=== PATIENT | female | born 1990 | race Caucasian/White ===

== ENCOUNTER → 2016-09-20 | Outpatient (CLI) | payer BC ==
--- NOTE | 2016-09-20 09:18 | US ---
EXAMINATION TYPE: US OB >= 14 wk fetus DATE OF EXAM: 09/20/2016 8:38 AM COMPARISON: None CLINICAL HISTORY: 25-year-old female O36.63X0 LARGE FOR DATES; G1 TECHNIQUE: Transabdominal (TA) GESTATIONAL AGE / DATING Physician Established: (38 weeks/0 days) EDC: 10/04/2016 Dates by LMP: (38 weeks/0 days) EDC: 10/04/2016 Dates by First Scan: not here Dates by Current Scan: (39 weeks/2 days +/- 2W5D) EDC: 09/25/2016 SURVEY IUP: Single PLACENTA: Fundal; small anechoic area in the central mid placenta measures 1.3 x 1.6 x 0.8 cm. PREVIA: No Previa DAYSI: 16.5 cm Normal CERVICAL LENGTH: Not well seen, estimated at 4.4 cm BIOMETRY PRESENTATION: Vertex LIE: Longitudinal BPD: 9.4 cm 38 weeks / 1 day HC: 34.7 cm 40 weeks / 1 day AC: 36.7 cm 40 weeks / 4 days FL: 7.5 cm 38 weeks / 3 days ESTIMATED WEIGHT IN GRAMS: 3886 grams ESTIMATED WEIGHT IN LBS/OZS: 8 lbs. 9 oz. WEIGHT PERCENTAGE BASED ON ESTABLISHED DATES: 94.3% HC/AC: 0.9 Normal FL/AC: 20.4 Normal HEART RATE: 178 bpm RHYTHM: Normal IMPRESSION: 1. Single live intrauterine with established gestational age of 38 weeks 0 days by LMP. 2. Current ultrasound biometry is concordant but larger (39 weeks 2 days) placing the child at the 94 th percentile for weight. Follow-up as clinically indicated for possible LGA/early macrosomia. 3. A 1.6 cm anechoic area within the central placenta is most suggestive of an incidental venous barrios . This could also be reassessed on any follow-up studies.
== END | disposition home or self-care (01) ==
LOC: RADUSWWP 08:06
PROVIDERS: ATTEND Obstetrics & Gynecology
DX: O36.63X0 Maternal care for excessive fetal growth, third trimester, not applicable or unspecified (principal); Z3A.38 38 weeks gestation of pregnancy
CPT/HCPCS: 76805

== ENCOUNTER 2016-09-22 15:55 | Outpatient (CLI) | payer BC ==
[2016-09-22 16:49] LABS: Basophils % (A) 0 %; CHCM 33.2; Eosinophils # (A) 0.1 k/uL (0-0.7); Eosinophils % (A) 1 %; HCT 37.9 % (34.0-46.0); HDW 2.64; HGB 12.5 gm/dL (11.4-16.0); Luc # (Auto) 0.19; Luc % (Auto) 2; Lymphocytes # (A) 1.8 k/uL (1.0-4.8); Lymphocytes % (A) 15 %; MCH 30.9 pg (25.0-35.0); MCV 93.6 fL (80.0-100.0); Mean Platelet Volume 10.1; Monocytes # (A) 0.5 k/uL (0-1.0); Monocytes % (A) 4 %; Neutrophils # (A) 9.5 k/uL (1.3-7.7); Neutrophils % (A) 78 %; RBC 4.04 m/uL (3.80-5.40); RDW 14.4 % (11.5-15.5); WBC 12.1 k/uL (3.8-10.6); WBC (Perox) 12.25
[2016-09-22 16:54] LABS: ALT 24 U/L (9-52); AST 26 U/L (14-36); LDH 447 U/L (313-618); Non-African American GFR(MDRD) >60 (>60 ml/min/1.73 sqM); Uric Acid 5.5 mg/dL (3.7-7.4)
== END 2016-09-22 17:05 | disposition home or self-care (01) ==
LOC: FBPOP 15:55
PROVIDERS: ATTEND Obstetrics & Gynecology
DX: Z53.9 Procedure and treatment not carried out, unspecified reason (principal)
CPT/HCPCS: 59025; 82565; 83615; 84450; 84460; 84550; 85025; 99215

== ENCOUNTER 2016-09-28 09:43 | Inpatient (IN) | payer BC ==
--- NOTE | 2016-09-27 07:40 | P.HPOB ---
History of Present Illness H&P Date: 09/27/16 Chief Complaint: Primary for macrosomia This patient is a pleasant 25-year-old 1 para 0 female estimated date of confinement 10/04/2016 estimated gestational age 39 weeks who presents to labor and delivery for elective section due to suspected macrosomia. Patient's history is such that she's had serial ultrasounds showing this baby be greater than the 90th percentile. Clinically her exam shows a to be very large as well. Patient states that herself and her were both large babies. I had a long discussion with her and her family about my concerns for the size of the baby and subsequent problems with vaginal delivery. Most recent ultrasound showed the baby to be over 3900 g and clinically much larger. She understands the problem with ultrasounds in the third trimester they are notoriously inaccurate and clinically there is concerns about the size of the her baby. I recommended she proceed with section at this time for delivery and she wishes to proceed. otherwise has been uncomplicated. Review of Systems Constitutional: Denies chills, Denies fever Ears, nose, mouth and throat: Denies headache, Denies sore throat Cardiovascular: Denies chest pain, Denies shortness of breath Respiratory: Denies cough Gastrointestinal: Reports heartburn Genitourinary: Reports Menstruation: Reports amenorrhea Musculoskeletal: Denies myalgias Integumentary: Denies pruritus, Denies rash Neurological: Denies numbness, Denies weakness Past Medical History Additional Past Medical History / Comment(s): Patient has a history of GERD and hiatal hernia. History of Any Multi-Drug Resistant Organisms: None Reported Additional Past Surgical History / Comment(s): Patient's had an upper endoscopy. Past Psychological History: No Psychological Hx Reported Smoking Status: Never smoker Past Alcohol Use History: None Reported Past Drug Use History: None Reported Medications and Allergies Home Medications Medication Instructions Recorded Confirmed Type Pediatric Multivit Comb #25/FA 1 tab PO DAILY 09/22/16 09/22/16 History [Flintstones Multivit Chew Tab] Allergies Allergy/AdvReac Type Severity Reaction Status Date / Time No Known Allergies Allergy Verified 09/22/16 16:08 Exam - OBG Physical Exam Abdomen: bowel sounds normal, no diffuse tenderness, no bruit present, no guarding noted, no hepatomegaly, no splenomegaly, no mass Vulva: both: normal Cervix: no lesion (Cervix in the office is closed and thick.), no discharge Uterus: enlarged (Fundal height in the office was 47 cm.) Results blood work shows she is O positive, rubella low positive, hepatitis B negative, RPR nonreactive, HIV nonreactive, Glucola was abnormal with a normal three-hour GTT, ultrasounds as above. Patient's estimated weight clinically is 9 to 9-1/2 pounds. Assessment and Plan (1) macrosomia during in third trimester Narrative/Plan: This is a pleasant 25-year-old 1 para 0 female 39 weeks gestation with suspected excessive macrosomia. Plan at this point is to proceed with primary section for delivery. Patient and I had multiple discussions about the surgery and risks including risks of infection, bleeding, risk of injury to bowel, bladder, vessels, and other organs. Patient also understands risk of DVT and pulmonary embolism. Patient I also discussed the relative inaccuracy of ultrasounds in the third trimester fact that this baby could be significantly larger or smaller than the stated ultrasound. All the patient's questions are answered and a written consent is obtained. Status: Acute (2) Delivery by elective section Status: Acute
[2016-09-28] MEDS ORDERED: CITRIC ACID-SODIUM CITRATE 15 ML CUP PO ONE (10:39)
[2016-09-28] MEDS ORDERED: LACTATED RINGERS 1,000 ML IV SCH (10:39)
[2016-09-28] MEDS ORDERED: LACTATED RINGERS 1,000 ML IV ONE (10:39)
[2016-09-28 10:47] VITALS: BMI 34.7
[2016-09-28 10:57] LABS: Basophils % (A) 0 %; CH 30.6; CHCM 32.9; Eosinophils # (A) 0.1 k/uL (0-0.7); Eosinophils % (A) 1 %; HCT 41.8 % (34.0-46.0); HDW 2.54; HGB 13.7 gm/dL (11.4-16.0); Luc # (Auto) 0.23; Luc % (Auto) 2; Lymphocytes # (A) 1.7 k/uL (1.0-4.8); Lymphocytes % (A) 14 %; MCH 30.6 pg (25.0-35.0); MCHC 32.7 g/dL (31.0-37.0); MCV 93.6 fL (80.0-100.0); Mean Platelet Volume 8.6; Monocytes # (A) 0.4 k/uL (0-1.0); Monocytes % (A) 3 %; Neutrophils # (A) 9.3 k/uL (1.3-7.7); Neutrophils % (A) 79 %; RBC 4.47 m/uL (3.80-5.40); RDW 14.5 % (11.5-15.5); WBC 11.8 k/uL (3.8-10.6); WBC (Perox) 12.59
[2016-09-28] MEDS ORDERED: ceFAZolin 2 GM in SODIUM CHLORIDE 0.9% 100 ML IVPB ONE (12:00)
[2016-09-28] MEDS ORDERED: KETOROLAC 30 MG/ML 1 ML VIAL ONE (12:18)
[2016-09-28] MEDS ORDERED: PHENYLEPHRINE-0.9% NACL SYG 1 MG/10 ML SYRINGE ONE (12:18)
[2016-09-28] MEDS ORDERED: ONDANSETRON 4 MG/2 ML VIAL ONE (12:18)
[2016-09-28] MEDS ORDERED: OXYTOCIN 10 UNIT/ML 1 ML VIAL IM ONE (12:18)
[2016-09-28] MEDS ORDERED: MORPHINE SULFATE (PF) 0.3 MG/0.3 ML SYR ONE (12:18)
[2016-09-28] MEDS ORDERED: NALBUPHINE 10 MG/ML AMPUL ONE (12:18)
[2016-09-28] MEDS ORDERED: MORPHINE SULFATE 4 MG/ML SYRINGE IVP PRN (12:40)
[2016-09-28] MEDS ORDERED: ONDANSETRON 4 MG/2 ML VIAL IVP PRN ×2 (12:40→12:56)
[2016-09-28] MEDS ORDERED: diphenhydrAMINE 50 MG/ML 1 ML VIAL IVP PRN ×2 (12:40→12:56)
[2016-09-28] MEDS ORDERED: NALOXONE 0.4 MG/ML 1 ML VIAL IV PRN ×2 (12:40→12:56)
[2016-09-28] MEDS ORDERED: ZOLPIDEM 5 MG TAB PO PRN (12:56)
[2016-09-28] MEDS ORDERED: SIMETHICONE 80 MG CHEWABLE PO PRN (12:56)
[2016-09-28] MEDS ORDERED: Acetaminophen-Codeine 300-30mg TAB PO PRN ×2 (12:56)
[2016-09-28] MEDS ORDERED: MEASLES-MUMPS-RUBELLA VACC/PF 12,500 UNIT/0.5 ML VIAL SQ ONE (12:56)
[2016-09-28] MEDS ORDERED: diphenhydrAMINE 25 MG CAP PO PRN (12:56)
[2016-09-28] MEDS ORDERED: METOCLOPRAMIDE 5 MG/ML 2 ML VIAL IVP PRN (12:56)
[2016-09-28] MEDS ORDERED: ACETAMINOPHEN TAB 325 MG TAB PO PRN (12:56)
[2016-09-28] MEDS ORDERED: DIPH,PERTUS(ACELL)TETVAC-LF 0.5 ML VIAL IM ONE (12:58)
[2016-09-28] MEDS ORDERED: OXYTOCIN 30 UNITS/500 ML NS 30 UNIT in SALINE 1 500ML.BAG IV SCH (13:00)
--- NOTE | 2016-09-28 13:03 | P.OP ---
Date of Procedure: 09/28/16 Preoperative Diagnosis: macrosomia Postoperative Diagnosis: Same Procedure(s) Performed: Primary low transverse section Anesthesia: spinal Surgeon: Beny Ybarra Cashier [employer] Gasoline #1: Moni Khan Estimated Blood Loss (ml): 800 Pathology: other (Placenta) Condition: stable Disposition: floor Indications for Procedure: Please see dictated H&P for intimate details of this patient's admission. Brief summary this is a pleasant 25-year-old 1 para 0 female 39 weeks gestation who is admitted to labor and delivery for elective section due to suspected macrosomia. Patient does understand the surgery and risks including risks of infection, bleeding, possible injury to bowel, bladder , vessels, and other organs. Patient also understands the risk of DVT and pulmonary embolism. All the patient's questions are answered and a written consent is obtained. Operative Findings: This was a vigorous viable male Apgars were 8 and 9 delivery time was 1231 hrs. Infant's weight was 4800 g which is 10 lbs. 9 oz. Description of Procedure: This patient has a Lloyd catheter placed to straight drain. She is subsequently taken to the operating room where she sat up and spinal anesthetic is administered without incident. With an adequate level of anesthesia she has an abdominal prep and drape. A Pfannenstiel skin incision is then made. A second scalpel is then taken to the fascia and the fascia scored with the scalpel. Fascial incision extended bilaterally using the Aguirre scissors. Fascia is then dissected sharply off the rectus muscles. Rectus muscles are the peritoneum identified and entered sharply. Bladder peritoneum was then incised and the bladder pushed out of the lower uterine segment. Bladder blade is placed. Scalpels taken low transverse uterine incision is then made. Using a hemostat I gently into the uterine cavity and there is loss of clear fluid. This incision is extended bluntly. 's head is then guided through the incision with fundal pressure with delivery of the infant's head. Mouth and nares are bulb suctioned. There is no evidence of a nuchal cord. We then have delivery anterior posterior shoulder and rest this 's body. This is a vigorous viable male Apgars are 8 and 9 delivery time was 1231 hrs. Infant has spontaneous respiration and good cry and grossly appears normal. After delivery of the infant the umbilical cord is doubly clamped and cut and appears to be trivascular. Placenta is then manually extracted intact. The uterus is then externalized and the uterine incision demarcated with Coyle clamps. The uterine incision is then closed using 0 Vicryl running locked fashion in 2 layers excellent hemostasis is noted. The bladder peritoneum was then reapproximated using a 3-0 Vicryl. Excess fluid is removed from the abdomen and pelvis. The uterus tubes and ovaries appear normal for term gestation. Uterus is placed back into the abdomen. The parietal peritoneum is closed using a 0 Vicryl running fashion. Rectus muscles are reapproximated in 0 Vicryl interrupted fashion. Fascia is then closed using 0 PDS in a running fashion. Fascial incision is intact and hemostatic. Subcutaneous tissues and reapproximated using a 3-0 Vicryl. Skin is and closed using vy. All counts are correct 3. There are no complications. Infant and mother are taken to the birthing suite in satisfactory condition.
[2016-09-28] MEDS: LACTATED RINGERS 1,000 ML IV SCH ×2 (13:25→23:05)
[2016-09-28] MEDS: KETOROLAC 30 MG/ML 1 ML VIAL IVP PRN (19:09)
[2016-09-28] MEDS: SENNOSIDES-DOCUSATE SODIUM 1 EACH TAB PO SCH (21:00)
[2016-09-29] MEDS: KETOROLAC 30 MG/ML 1 ML VIAL IVP PRN (04:56)
[2016-09-29] MEDS: LACTATED RINGERS 1,000 ML IV SCH ×2 (05:01→14:42)
--- NOTE | 2016-09-29 06:27 | P.PNOBGPC ---
Subjective - Subjective Patient reports: Reports appetite normal, Reports voiding normally, Reports pain well controlled, Reports ambulating normally : doing well Objective - Vital Signs Latest vital signs: Vital Signs Temp Pulse Resp BP Pulse Ox 09/29/16 04:00 97.4 F L 66 16 127/80 09/29/16 00:00 97.9 F 64 16 126/74 09/28/16 20:00 97.9 F 72 17 127/76 09/28/16 14:56 96.7 F L 58 L 18 134/97 98 09/28/16 14:26 76 18 118/79 97 09/28/16 13:56 61 18 122/71 97 09/28/16 13:41 74 18 129/67 98 09/28/16 13:26 96.0 F L 69 16 128/68 98 09/28/16 13:11 95.6 F L 71 17 107/65 98 09/28/16 12:56 95.9 F L 81 18 113/59 97 09/28/16 10:40 97.4 F L 97 18 132/90 99 Intake and Output 09/28/16 09/28/16 09/29/16 14:59 22:59 06:59 Intake Total 3200 625 Output Total 800 200 Balance -800 3000 625 Intake: IV 3000 625 Lactated Ringers 1,000 ml 3000 625 @ 125 mls/hr IV .Q8H [facility] Rx#:[id number] Oral 200 Output: Urine 200 Uretheral (Lloyd) 200 Estimated Blood Loss 800 Other: Voiding Method Indwelling Catheter Weight 97.522 kg Patient Weight 09/29/16 06:59 Weight 97.522 kg - Exam Lungs: bilateral: normal Chest: Normal S1, Normal S2 Extremities: Present: normal Abdomen: Present: normal appearance, soft. Absent: distention, tenderness Incision: Present: normal, dry, intact Uterus: Present: normal, firm - Labs Labs: Abnormal Lab Results - Last 24 Hours (Table) 09/28/16 Range/Units 10:47 WBC 11.8 H (3.8-10.6) k/uL Neutrophils # 9.3 H (1.3-7.7) k/uL Assessment and Plan (1) macrosomia during in third trimester Narrative/Plan: Postoperative day #1. Patient is resting without complaints. Vital signs are stable and she is afebrile. Uterus is firm nontender she's having normal lochia. Incision is intact and dry. CBC is pending. My impression is this is a normal course. Plan is to advance to regular diet, allow the patient to shower, encourage ambulation, check a CBC, and continue routine postoperative care. Current Visit: Yes Status: Acute Code(s): O36.63X0 - MATERNAL CARE FOR EXCESS GROWTH, THIRD TRIMESTER, UNSP SNOMED Code(s): 918461061 (2) Delivery by elective section Current Visit: Yes Status: Acute Code(s): O82 - ENCOUNTER FOR DELIVERY WITHOUT INDICATION SNOMED Code(s): 737872061
--- NOTE | 2016-09-29 07:25 | P.PN ---
Progress Note - Text Date: 09/29/2016 Time: 707 The patient is status post section Vital signs stable VAS: 0-10 Patient has no complaints of pain. The patient incurred some minimal itching yesterday, this itching is now subsiding. Pain meds to be managed by service.
[2016-09-29] MEDS: SENNOSIDES-DOCUSATE SODIUM 1 EACH TAB PO SCH ×2 (07:44→23:09)
[2016-09-29 08:08] LABS: Basophils % (A) 0 %; CH 30.5; Eosinophils # (A) 0.1 k/uL (0-0.7); Eosinophils % (A) 1 %; HCT 35.6 % (34.0-46.0); HDW 2.52; HGB 11.6 gm/dL (11.4-16.0); Luc # (Auto) 0.14; Luc % (Auto) 1; Lymphocytes # (A) 1.3 k/uL (1.0-4.8); Lymphocytes % (A) 11 %; MCH 30.3 pg (25.0-35.0); MCHC 32.6 g/dL (31.0-37.0); Mean Platelet Volume 9.1; Monocytes # (A) 0.4 k/uL (0-1.0); Monocytes % (A) 4 %; Neutrophils # (A) 9.8 k/uL (1.3-7.7); Neutrophils % (A) 84 %; RBC 3.83 m/uL (3.80-5.40); RDW 14.5 % (11.5-15.5); WBC 11.7 k/uL (3.8-10.6); WBC (Perox) 12.68
[2016-09-29] MEDS: IBUPROFEN 600 MG TAB PO PRN ×2 (16:00→23:08)
[2016-09-30] MEDS: IBUPROFEN 600 MG TAB PO PRN ×2 (05:36→11:59)
--- NOTE | 2016-09-30 06:34 | P.PNOBGPC ---
Subjective - Subjective Patient reports: Reports appetite normal, Reports voiding normally, Reports pain well controlled, Reports ambulating normally : doing well Objective - Vital Signs Latest vital signs: Vital Signs Temp Pulse Resp BP Pulse Ox 09/30/16 04:00 98.0 F 68 19 131/76 98 09/29/16 20:00 97.8 F 74 16 144/81 97 09/29/16 16:00 97.9 F 77 16 130/78 99 09/29/16 12:30 98.0 F 78 18 137/73 97 09/29/16 07:49 97.5 F L 72 18 127/80 97 Intake and Output 09/29/16 09/29/16 09/30/16 14:59 22:59 06:59 Intake Total 600 Balance 600 Intake: Oral 600 Other: # Voids 1 2 # Bowel Movements 0 - Exam Lungs: bilateral: normal Chest: Normal S1, Normal S2 Extremities: Present: normal Abdomen: Present: normal appearance, soft. Absent: distention, tenderness Incision: Present: normal, dry, intact Uterus: Present: normal, firm - Labs Labs: Abnormal Lab Results - Last 24 Hours (Table) 09/29/16 Range/Units 07:44 WBC 11.7 H (3.8-10.6) k/uL Neutrophils # 9.8 H (1.3-7.7) k/uL Assessment and Plan (1) macrosomia during in third trimester Narrative/Plan: Post operative day #2. Patient is resting without complaints and wishes to go home. Vital signs are stable and she is afebrile. Uterus is firm nontender and her incision is intact and dry. My impression is that this is a normal postoperative course. Plan is to continue routine postoperative care and discharge home later today. Current Visit: Yes Status: Acute Code(s): O36.63X0 - MATERNAL CARE FOR EXCESS GROWTH, THIRD TRIMESTER, UNSP SNOMED Code(s): 794280404 (2) Delivery by elective section Current Visit: Yes Status: Acute Code(s): O82 - ENCOUNTER FOR DELIVERY WITHOUT INDICATION SNOMED Code(s): 050505047
--- NOTE | 2016-09-30 06:37 | P.DS ---
Providers Date of admission: 09/28/16 10:17 Expected date of discharge: 09/30/16 Attending physician: Beny Ybarra Primary care physician: Nate Valentine - Discharge Diagnosis(es) (1) macrosomia during in third trimester Current Visit: Yes Status: Acute (2) Delivery by elective section Current Visit: Yes Status: Acute Hospital Course: Please see dictated H&P for intimate details of this patient's admission. Brief summary this is a pleasant 25-year-old 1 para 0 female 39-0/7 weeks gestation admitted to labor and delivery for primary section due to suspected macrosomia. Patient undergoes above-named surgery for viable male infant. Please see dictated delivery note. day #2 patient's felt be stable for discharge home follow up with me in 1 week. Procedures: Primary low transverse section Patient Condition at Discharge: Good Plan - Discharge Summary New Discharge Prescriptions: Acetaminophen-Codeine 300-30mg [Tylenol w/codeine #3] 1 - 2 each PO Q4HR PRN # 40 tab PRN Reason: Mild Pain Ibuprofen [Motrin] 600 mg PO Q6HR PRN #40 tab PRN Reason: Mild Pain Or Fever >= 100.5 Discharge Medication List Pediatric Multivit Comb #25/FA [Flintstones Multivit Chew Tab] 1 tab PO DAILY [History] Acetaminophen-Codeine 300-30mg [Tylenol w/codeine #3] 1 - 2 each PO Q4HR PRN # 40 tab 09/30/16 [Rx] Ibuprofen [Motrin] 600 mg PO Q6HR PRN #40 tab 09/30/16 [Rx] Follow up Appointment(s)/Referral(s): Beny Ybarra MD [STAFF PHYSICIAN] - 10/06/16 1:30 pm (Patient also has a check on November 11 at 8:30 AM.) Patient Instructions/Handouts: (DC) Activity/Diet/Wound Care/Special Instructions: No intercourse or anything per vagina for 6 weeks. Please call if any fever, chills, excessive vaginal bleeding, and/or abdominal pain. Discharge Disposition: HOME SELF-CARE
[2016-09-30] MEDS: SENNOSIDES-DOCUSATE SODIUM 1 EACH TAB PO SCH (08:05)
[2016-09-30 08:55] VITALS: BP 137/99; PULSE 78; RESP 18; TEMP 98.3
== END 2016-09-30 12:45 | disposition home or self-care (01) | DRG 766 ==
LOC: 4FBP 10:17
PROVIDERS: ADMIT Obstetrics & Gynecology; ATTEND Obstetrics & Gynecology
PROC: 3E0S3NZ Introduction of Analgesics, Hypnotics, Sedatives into Epidural Space, Percutaneous Approach (ICD-10-PCS; 2016-09-28)
PROC: 3E0234Z Introduction of Serum, Toxoid and Vaccine into Muscle, Percutaneous Approach (ICD-10-PCS; 2016-09-28)
PROC: 3E0134Z Introduction of Serum, Toxoid and Vaccine into Subcutaneous Tissue, Percutaneous Approach (ICD-10-PCS; 2016-09-28)
PROC: 10D00Z1 Extraction of Products of Conception, Low, Open Approach (ICD-10-PCS; principal; 2016-09-28 12:30)
DX: O36.63X0 Maternal care for excessive fetal growth, third trimester, not applicable or unspecified (principal); K21.9 Gastro-esophageal reflux disease without esophagitis; K44.9 Diaphragmatic hernia without obstruction or gangrene; O99.62 Diseases of the digestive system complicating childbirth; Z3A.39 39 weeks gestation of pregnancy; Z37.0 Single live birth; Z23 Encounter for immunization
CPT/HCPCS: 85025; 86850; 86900; 86901; 88307; 90707; 90715

== ENCOUNTER 2017-11-16 06:32 | Emergency (ER) | payer BC ==
[2017-11-16 06:39] VITALS: RESP 18
[2017-11-16] MEDS ORDERED: SODIUM CHLORIDE 0.9% 1,000 ML IV STA (07:16)
[2017-11-16] MEDS ORDERED: diphenhydrAMINE 50 MG/ML 1 ML VIAL IVP STA (07:18)
[2017-11-16] MEDS ORDERED: FAMOTIDINE 20 MG/2 ML VIAL IV STA (07:18)
[2017-11-16] MEDS ORDERED: PYRIDOXINE 50 MG TAB PO STA (07:18)
--- NOTE | 2017-11-16 07:22 | ED ---
General Adult HPI - General Chief complaint: GI Bleed Stated complaint: Vomit blood-15 wks pg Time Seen by Provider: 11/16/17 07:12 Source: patient Mode of arrival: ambulatory Limitations: no limitations - History of Present Illness Initial comments: Patient complains of nausea and vomiting. She is currently 15 weeks . She states that she has bad morning sickness. Patient states that she saw blood in her vomit this morning. She is not currently vomiting. She has no belly or back or chest pain. She has no vaginal bleeding or discharge. She has no pelvic pain. She denies injuries. She has no weakness. She has no trouble walking. She has no trouble tolerating oral intake. She has no neck pain or stiffness. Nothing makes her symptoms better or worse. - Related Data Home Medications Medication Instructions Recorded Confirmed Pedi Multivit No.25/Folic Acid 1 tab PO DAILY 09/22/16 09/22/16 [Flintstones Multivit Chew Tab] Previous Rx's Medication Instructions Recorded Acetaminophen-Codeine 300-30mg 1 - 2 each PO Q4HR PRN #40 tab 09/30/16 [Tylenol w/codeine #3] Ibuprofen [Motrin] 600 mg PO Q6HR PRN #40 tab 09/30/16 Doxylamine Succinate [Unisom] 25 mg PO HS PRN #10 tab 11/16/17 Allergies Allergy/AdvReac Type Severity Reaction Status Date / Time No Known Allergies Allergy Verified 11/16/17 06:39 Review of Systems ROS Statement: Those systems with pertinent positive or pertinent negative responses have been documented in the HPI. ROS Other: All systems not noted in ROS Statement are negative. Past Medical History Past Medical History: No Reported History Additional Past Medical History / Comment(s): Patient has a history of GERD and hiatal hernia. History of Any Multi-Drug Resistant Organisms: None Reported Past Surgical History: No Surgical Hx Reported, Section Additional Past Surgical History / Comment(s): Patient's had an upper endoscopy. X1. Past Anesthesia/Blood Transfusion Reactions: No Reported Reaction Past Psychological History: No Psychological Hx Reported Smoking Status: Never smoker Past Alcohol Use History: None Reported Past Drug Use History: None Reported - Past Family History Father Family Medical History: No Reported History General Exam Limitations: no limitations General appearance: alert, in no apparent distress Head exam: Present: atraumatic, normocephalic, normal inspection Eye exam: Present: normal appearance, PERRL, EOMI. Absent: scleral icterus, conjunctival injection, periorbital swelling ENT exam: Present: normal exam, mucous membranes moist Neck exam: Present: normal inspection. Absent: tenderness, meningismus, lymphadenopathy Respiratory exam: Present: normal lung sounds bilaterally. Absent: respiratory distress, wheezes, rales, rhonchi, stridor Cardiovascular Exam: Present: regular rate, normal rhythm, normal heart sounds. Absent: systolic murmur, diastolic murmur, rubs, gallop, clicks GI/Abdominal exam: Present: soft, normal bowel sounds. Absent: distended, tenderness, guarding, rebound, rigid Extremities exam: Present: normal inspection, full ROM, normal capillary refill. Absent: tenderness, pedal edema, joint swelling, calf tenderness Back exam: Present: normal inspection Neurological exam: Present: alert, oriented X3, CN II-XII intact Psychiatric exam: Present: normal affect, normal mood Skin exam: Present: warm, dry, intact, normal color. Absent: rash Course Vital Signs 11/16/17 06:34 Temperature 99.7 F H Pulse Rate 90 Respiratory 18 Rate Blood Pressure 134/70 O2 Sat by Pulse 100 Oximetry Medical Decision Making - Medical Decision Making Patient presents with nausea and vomiting related to . She complained of blood in the vomit. She has not had a single episode of emesis while in the emergency department. Laboratory studies all normal. Her examination is unremarkable. Her vital signs are normal. There is no evidence of any acute emergency condition. She will follow-up with [facility] as an outpatient. - Lab Data Result diagrams: 11/16/17 07:40 11/16/17 07:40 Lab Results 11/16/17 11/16/17 11/16/17 Range/Units 07:40 07:40 07:40 WBC 10.9 H (3.8-10.6) k/uL RBC 4.26 (3.80-5.40) m/uL Hgb 12.7 (11.4-16.0) gm/dL Hct 38.0 (34.0-46.0) % MCV 89.3 (80.0-100.0) fL MCH 29.9 (25.0-35.0) pg MCHC 33.5 (31.0-37.0) g/dL RDW 13.5 (11.5-15.5) % Plt Count 268 (150-450) k/uL Neutrophils % 76 % Lymphocytes % 18 % Monocytes % 3 % Eosinophils % 2 % Basophils % 0 % Neutrophils # 8.3 H (1.3-7.7) k/uL Lymphocytes # 2.0 (1.0-4.8) k/uL Monocytes # 0.3 (0-1.0) k/uL Eosinophils # 0.2 (0-0.7) k/uL Basophils # 0.0 (0-0.2) k/uL PT 9.5 (9.0-12.0) sec INR 1.0 (<1.2) APTT 23.9 (22.0-30.0) sec Sodium 141 (137-145) mmol/L Potassium 3.9 (3.5-5.1) mmol/L Chloride 107 (98-107) mmol/L Carbon Dioxide 21 L (22-30) mmol/L Anion Gap 13 mmol/L BUN 8 (7-17) mg/dL Creatinine 0.42 L (0.52-1.04) mg/dL Est GFR (CKD-EPI)AfAm >90 (>60 ml/min/1.73 sqM) Est GFR (CKD-EPI)NonAf >90 (>60 ml/min/1.73 sqM) Glucose 92 (74-99) mg/dL Calcium 9.4 (8.4-10.2) mg/dL Magnesium 1.7 (1.6-2.3) mg/dL Total Bilirubin 0.2 (0.2-1.3) mg/dL AST 13 L (14-36) U/L ALT 27 (9-52) U/L Alkaline Phosphatase 56 (38-126) U/L Total Protein 6.2 L (6.3-8.2) g/dL Albumin 3.6 (3.5-5.0) g/dL Disposition Clinical Impression: Nausea and vomiting Disposition: HOME SELF-CARE Condition: Good Instructions: Hyperemesis Gravidarum (ED) Prescriptions: Doxylamine Succinate [Unisom] 25 mg PO HS PRN #10 tab PRN Reason: Vomiting Is patient prescribed a controlled substance at discharge?: No Referrals: Beny Ybarra MD [Primary Care Provider] - 1-2 days
[2017-11-16 07:59] LABS: Basophils % (A) 0 %; Eosinophils # (A) 0.2 k/uL (0-0.7); Eosinophils % (A) 2 %; HGB 12.7 gm/dL (11.4-16.0); Lymphocytes % (A) 18 %; MCH 29.9 pg (25.0-35.0); MCHC 33.5 g/dL (31.0-37.0); MCV 89.3 fL (80.0-100.0); Mean Platelet Volume 7.3; Monocytes # (A) 0.3 k/uL (0-1.0); Monocytes % (A) 3 %; Neutrophils # (A) 8.3 k/uL (1.3-7.7); Neutrophils % (A) 76 %; Platelet Count 268 k/uL (150-450); RBC 4.26 m/uL (3.80-5.40); RDW 13.5 % (11.5-15.5); WBC 10.9 k/uL (3.8-10.6)
[2017-11-16 08:12] LABS: Partial Thromboplastin Time 23.9 sec (22.0-30.0); Prothrombin Time 9.5 sec (9.0-12.0)
[2017-11-16 08:25] LABS: ALT 27 U/L (9-52); AST 13 U/L (14-36); Albumin 3.6 g/dL (3.5-5.0); Alkaline Phosphatase 56 U/L (38-126); Anion Gap 13 mmol/L; Blood Urea Nitrogen 8 mg/dL (7-17); Calcium 9.4 mg/dL (8.4-10.2); Carbon Dioxide 21 mmol/L (22-30); Chloride 107 mmol/L (98-107); Glucose 92 mg/dL (74-99); Magnesium 1.7 mg/dL (1.6-2.3); Potassium 3.9 mmol/L (3.5-5.1); Sodium 141 mmol/L (137-145); Total Bilirubin 0.2 mg/dL (0.2-1.3); Total Protein 6.2 g/dL (6.3-8.2)
[2017-11-16 08:41] VITALS: BP 127/58; PULSE 78; TEMP 98.9
== END 2017-11-16 08:45 | disposition home or self-care (01) ==
LOC: EC 06:32
DX: O21.9 Vomiting of pregnancy, unspecified (principal); Z3A.15 15 weeks gestation of pregnancy
CPT/HCPCS: 36415; 80053; 83735; 85025; 85610; 85730; 99284; 96374; 96375; 96361; J1200

== ENCOUNTER → 2018-02-03 | Outpatient (CLI) | payer BC ==
[2018-02-03 10:04] LABS: HCT 41.2 % (34.0-46.0); HGB 13.2 gm/dL (11.4-16.0); MCH 30.7 pg (25.0-35.0); MCV 95.7 fL (80.0-100.0); Mean Platelet Volume 7.6; Platelet Count 251 k/uL (150-450); RDW 13.8 % (11.5-15.5); WBC 12.4 k/uL (3.8-10.6)
== END | disposition home or self-care (01) ==
LOC: LABWHC1 08:32
PROVIDERS: ATTEND Obstetrics & Gynecology
DX: Z34.82 Encounter for supervision of other normal pregnancy, second trimester (principal); Z3A.00 Weeks of gestation of pregnancy not specified
CPT/HCPCS: 36415; 82950; 85027

== ENCOUNTER 2018-03-20 10:40 | Outpatient (CLI) | payer BC ==
[2018-03-20 11:18] LABS: Glucose,Whole Blood 105 mg/dL (75-99)
[2018-03-20 12:05] LABS: Appearance,Urine Cloudy (Clear); Bacteria,Urine Rare /hpf; Bilirubin,Urine Negative (Negative); Blood,Urine Negative (Negative); Color,Urine Yellow; Glucose,Urine (UA) 2+ (Negative); Leukocyte Esterase,Urine Negative (Negative); Mucus,Urine Rare /hpf; Nitrite,Urine Negative (Negative); Protein,Urine Trace (Negative); RBC,Urine <1 /hpf (0-5); Specific Gravity,Urine 1.011 (1.001-1.035); Squamous Epithelial Cell,Urine 2 /hpf (0-4); Urobilinogen,Urine <2.0 mg/dL (<2.0); WBC,Urine 6 /hpf (0-5)
[2018-03-20 12:06] LABS: Ketones,Urine 2+ (Negative)
[2018-03-20] MEDS: LACTATED RINGERS 1,000 ML IV SCH ×2 (12:30→12:45)
[2018-03-20 12:38] LABS: Basophils % (A) 0 %; Eosinophils # (A) 0.1 k/uL (0-0.7); Eosinophils % (A) 1 %; HCT 40.6 % (34.0-46.0); HGB 12.9 gm/dL (11.4-16.0); Lymphocytes # (A) 0.9 k/uL (1.0-4.8); Lymphocytes % (A) 8 %; MCH 29.7 pg (25.0-35.0); MCHC 31.7 g/dL (31.0-37.0); MCV 93.6 fL (80.0-100.0); Monocytes # (A) 0.6 k/uL (0-1.0); Monocytes % (A) 5 %; Neutrophils # (A) 9.8 k/uL (1.3-7.7); Neutrophils % (A) 85 %; Platelet Count 207 k/uL (150-450); RBC 4.34 m/uL (3.80-5.40); RDW 14.1 % (11.5-15.5); WBC 11.5 k/uL (3.8-10.6)
[2018-03-20 13:39] VITALS: BP 130/76; RESP 17; TEMP 98.8
[2018-03-20 13:54] VITALS: PULSE 99
--- NOTE | 2018-03-28 08:12 | P.MSEPDOC ---
Presenting Problems - Arrival Data Date of Arrival on Unit: 03/20/18 Time of Arrival on Unit: 10:29 Mode of Transport: Ambulatory - Complaint OB-Reason for Admission/Chief Complaint: Decreased Movement Comment: pt here with c/o decreased movement all morning, last felt move. around 0830 this morning, pt denies contractions/cramping/vb/lof, pt reports lower back. pain and occasional lower abd pain that has been occuring since yesterday morning, hx of. gdm, will check blood sugar Medical History - Information : 2 Para: 1 Term: 1 : 0 Abortions: Spontaneous or Elective: 0 Number of Living Children: 1 - Gestational Age Gestational Age by EMILY (wks/days): 32 Weeks and 3 Days - History Complications: GDM Comment: fasting blood sugar today was 116, re checked accucheck in triage for a result of 105 Review of Systems - Review of Systems Constitutional: No problems Breast: No problems ENT: Sore throat Cardiovascular: No problems Respiratory: No problems Gastrointestinal: No problems Genitourinary: No problems Musculoskeletal: No problems Neurological: No problems Skin: No problems Vital Signs - Temperature Temperature: 98.8 F Temperature Source: Oral - Pulse Right Brachial Pulse Rate: 99 Pulse Assessment Method: Automatic Cuff - Respirations Respiratory Rate: 17 Oxygen Delivery Method: Room Air O2 Sat by Pulse Oximetry: 98 - Blood Pressure Right Arm Blood Pressure: 130/76 Blood Pressure Mean: 94 Blood Pressure Source: Automatic Cuff Medical Screen Scoring (Pre) - Cervical Exam Dilation: 0 cm = 0 Membranes: Intact - Uterine Contractions Frequency: N/A Duration: N/A Intensity: N/A - Maternal Vital Signs Maternal Temperature: N/A Maternal Blood Pressure: N/A Signs of Preeclampsia: N/A Maternal Respirations: N/A - Pain Assessment Pain Location and Character: Lower, Back Pain Scale Used: Numeric (1 - 10) Pain Intensity: 4 Pain Management Goal: 3 Pain Description: *Acute, Aching Pain Radiation Location: none Pain Frequency: Frequent Pain Duration: 1 Pain Duration Units: Days Pain Behavior: None Exhibited Pain Aggravating Factors: None - Maternal Trauma Maternal Trauma: N/A - Assessment Baseline FHR: 140 Heart Rate - NICHD Category: Category I (Normal) = 0 NST: Reactive Position: N/A Station: N/A - Total Score Total Score (Pre): 0 - Level of Risk Level of Risk: Low (0-5) Physician Notification (Pre) - Physician Notified Physician Notified Date: 03/20/18 Physician Notified Time: 12:15 Physician/Practitioner Notifed:: Dr Funez Spoke With: Dr Funez New Order Received: Yes (labs and iv start) Medical Screen Scoring (Post) - Uterine Contractions Frequency: N/A Duration: N/A Intensity: N/A - Maternal Vital Signs Maternal Temperature: N/A Maternal Blood Pressure: N/A Signs of Preeclampsia: N/A Maternal Respirations: N/A - Assessment Heart Rate: 140 Heart Rate - NICHD Category: Category I (Normal) = 0 NST: Reactive Position: N/A Station: N/A - Total Score Total Score (Post): 0 - Post Treatment Level of Risk Post Treatment Level of Risk: Low (0-5) Physician Notification (Post) - Physician Notified Physician Notified Date: 03/20/18 Physician Notified Time: 13:39 Physician/Practitioner Notified:: Dr Funez Spoke With: Dr Funez New Order Received: Yes (dc home) - Notification Comment Comment: reivewed blood work results with dr fnuez, pt ok to dc home at this time and keep appt for tuesday at office Disposition - Disposition OB Disposition: Triage, Discharge to home, Written follow up instructions reviewed Discharge Date: 03/20/18 Discharge Time: 13:53 I agree with the RN Medical Screening Exam: Yes Risk & Benefit of care provided described in d/c instruction: Yes Diagnosis: DECREASED MOVEMENTS, THIRD TRIMESTER, FETUS 1
== END 2018-03-20 13:59 | disposition home or self-care (01) ==
LOC: FBPOP 10:40
PROVIDERS: ATTEND Obstetrics & Gynecology
DX: O36.8131 Decreased fetal movements, third trimester, fetus 1 (principal); Z3A.32 32 weeks gestation of pregnancy
CPT/HCPCS: 59025; 81001; 84443; 85025; 96360; 99214

== ENCOUNTER 2018-04-16 05:57 | Outpatient (CLI) | payer BC ==
[2018-04-16 07:09] VITALS: BP 130/78; PULSE 90; RESP 16; TEMP 96.9
--- NOTE | 2018-04-16 09:26 | P.MSEPDOC ---
Presenting Problems - Arrival Data Date of Arrival on Unit: 04/16/18 Time of Arrival on Unit: 05:58 Mode of Transport: Ambulatory - Complaint OB-Reason for Admission/Chief Complaint: Possible Onset of Labor Medical History - Information : 2 Para: 1 Term: 1 : 0 Abortions: Spontaneous or Elective: 1 Number of Living Children: 1 - Gestational Age Gestational Age by EMILY (wks/days): 36 Weeks and 2 Days - History Complications: GDM Review of Systems - Review of Systems Constitutional: No problems Breast: No problems ENT: No problems Cardiovascular: No problems Respiratory: No problems Gastrointestinal: No problems Genitourinary: No problems Musculoskeletal: No problems Neurological: No problems Skin: No problems Vital Signs - Temperature Temperature: 96.9 F Temperature Source: Temporal Artery Scan - Pulse Right Brachial Pulse Rate: 90 Pulse Assessment Method: Automatic Cuff - Respirations Respiratory Rate: 16 Oxygen Delivery Method: Room Air O2 Sat by Pulse Oximetry: 98 - Blood Pressure Right Arm Blood Pressure: 130/78 Blood Pressure Mean: 95 Blood Pressure Source: Automatic Cuff Medical Screen Scoring (Pre) - Cervical Exam Dilation: 0 cm = 0 Membranes: Intact - Uterine Contractions Frequency: > or = 36 weeks =2 Duration: N/A Intensity: N/A - Maternal Vital Signs Maternal Temperature: N/A Maternal Blood Pressure: N/A Signs of Preeclampsia: N/A Maternal Respirations: N/A - Pain Assessment Pain Location and Character: Abdomen Pain Scale Used: Numeric (1 - 10) Pain Intensity: 5 Pain Description: Cramping Pain Frequency: Intermittent Pain Duration Units: Minutes Pain Behavior: None Exhibited Pain Aggravating Factors: Contractions - Maternal Trauma Maternal Trauma: N/A - Assessment Baseline FHR: 140 Heart Rate - NICHD Category: Category I (Normal) = 0 NST: Reactive Position: N/A Station: N/A - Total Score Total Score (Pre): 2 - Level of Risk Level of Risk: Low (0-5) Physician Notification (Pre) - Physician Notified Physician Notified Date: 04/16/18 Physician Notified Time: 07:05 Physician/Practitioner Notifed:: Dr. Funez Spoke With: Dr. Funez New Order Received: Yes - Notification Comment Comment: Dr. Funez called and given report on pt in triage. Pt c/o. vag exam of closed/thick/high with no change after 1 hour. Orders recieved to keep pt for one more hour and perform vag exam. Medical Screen Scoring (Post) - Cervical Exam Dilation: 0 cm = 0 Membranes: Intact - Total Score Total Score (Post): 0 Physician Notification (Post) - Physician Notified Physician Notified Date: 04/16/18 Physician Notified Time: 08:15 Spoke With: dr funez New Order Received: Yes - Notification Comment Comment: no change in cervix . contractions had spaced out. reactive nst. may discharge to home Disposition - Disposition OB Disposition: Discharge to home Discharge Date: 04/16/18 Discharge Time: 08:25 I agree with the RN Medical Screening Exam: Yes Risk & Benefit of care provided described in d/c instruction: Yes Diagnosis: FALSE LABOR BEFORE 37 COMPLETED WEEKS OF GEST, THIRD TRI
== END 2018-04-16 08:25 | disposition home or self-care (01) ==
LOC: FBPOP 05:57
PROVIDERS: ATTEND Obstetrics & Gynecology
DX: O47.03 False labor before 37 completed weeks of gestation, third trimester (principal); Z3A.36 36 weeks gestation of pregnancy
CPT/HCPCS: 59025; 99213

== ENCOUNTER 2018-05-01 18:30 | Inpatient (IN) | payer BC ==
[2018-05-01] MEDS ORDERED: CITRIC ACID-SODIUM CITRATE 15 ML CUP PO ONE (19:44)
[2018-05-01] MEDS ORDERED: ceFAZolin IN SWFI 2 GM/20 ML SYRINGE IVP ONE (19:44)
[2018-05-01] MEDS: LACTATED RINGERS 1,000 ML IV SCH (19:51)
--- NOTE | 2018-05-01 19:55 | P.HPOB ---
History of Present Illness H&P Date: 05/01/18 Chief Complaint: Spontaneous rupture membranes 27-year-old presents at 38 weeks and 3 days with spontaneous rupture of membranes. She thinks she may have been leaking since last night. Her cervix is closed and thick. Amnio sure is positive. heart tones are 110 115 with moderate variability and reactive. She is gagandeep irregularly. Review of Systems All systems: negative Constitutional: Denies chills, Denies fever Eyes: denies blurred vision, denies pain Ears, nose, mouth and throat: Denies headache, Denies sore throat Cardiovascular: Denies chest pain, Denies shortness of breath Respiratory: Denies cough Gastrointestinal: Denies abdominal pain, Denies diarrhea, Denies nausea, Denies vomiting Genitourinary: Denies dysuria, Denies hematuria Musculoskeletal: Denies myalgias Integumentary: Denies pruritus, Denies rash Neurological: Denies numbness, Denies weakness Psychiatric: Denies anxiety, Denies depression Endocrine: Denies fatigue, Denies weight change Past Medical History Past Medical History: No Reported History Additional Past Medical History / Comment(s): Patient has a history of GERD and hiatal hernia. Obstetric history: Her first was a primary section for macrosomia, 10 lbs. 9 oz. This is her second . 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 She did not do genetic testing. She does have gestational diabetes and is on insulin. She does have macrosomia and polyhydramnios with this . GBS negative. O+, antibodies negative, rubella immune, RPR nonreactive, this B-, HIV nonreactive. History of Any Multi-Drug Resistant Organisms: None Reported Past Surgical History: No Surgical Hx Reported, Section Additional Past Surgical History / Comment(s): Patient's had an upper endoscopy. X1. Past Anesthesia/Blood Transfusion Reactions: No Reported Reaction Smoking Status: Never smoker - Past Family History Father Family Medical History: No Reported History Medications and Allergies Home Medications Medication Instructions Recorded Confirmed Type Pedi Multivit No.25/Folic Acid 1 tab PO DAILY 09/22/16 05/01/18 History [Flintstones Multivit Chew Tab] Insulin Lispro [humaLOG Kwikpen] 10 unit SQ HS 05/01/18 05/01/18 History Allergies Allergy/AdvReac Type Severity Reaction Status Date / Time No Known Allergies Allergy Verified 05/01/18 18:43 Exam Osteopathic Statement: *. No significant issues noted on an osteopathic structural exam other than those noted in the History and Physical/Consult. Vital Signs Temp Pulse Resp BP Pulse Ox 05/01/18 18:44 97.7 F 90 16 124/74 97 Intake and Output 05/01/18 05/01/18 05/01/18 06:59 14:59 22:59 Other: Weight 96.615 kg Heart: Regular rate and rhythm Lungs: Clear to auscultation bilaterally Abdomen: Soft, nontender Extremities: Negative Homans sign Assessment and Plan (1) Previous section Current Visit: Yes Status: Acute Code(s): Z98.891 - SNOMED Code(s): 315297543 (2) Gestational diabetes mellitus, class A2 Current Visit: Yes Status: Acute Code(s): O24.419 - GESTATIONAL DIABETES MELLITUS IN , UNSP CONTROL SNOMED Code(s): 66874829 (3) Spontaneous rupture of membranes Current Visit: Yes Status: Acute Code(s): OTA4990 - SNOMED Code(s): 919310123 Plan: 1. Admit to family place 2. Prep for repeat low transverse
--- NOTE | 2018-05-01 19:56 | P.MSEPDOC ---
Presenting Problems - Arrival Data Date of Arrival on Unit: 05/01/18 Time of Arrival on Unit: 18:30 Mode of Transport: Ambulatory - Complaint OB-Reason for Admission/Chief Complaint: Rule Out SROM Comment: leaking since yesterday 1800, clear fluid Medical History - Information : 2 Para: 1 Term: 1 : 0 Abortions: Spontaneous or Elective: 0 Number of Living Children: 1 - Gestational Age Gestational Age by EMILY (wks/days): 38 Weeks and 3 Days - History Complications: GDM, Prior Review of Systems - Review of Systems Constitutional: No problems Breast: No problems ENT: No problems Cardiovascular: No problems Respiratory: No problems Gastrointestinal: No problems Genitourinary: No problems Musculoskeletal: No problems Neurological: No problems Skin: No problems Vital Signs - Temperature Temperature: 97.7 F Temperature Source: Temporal Artery Scan - Pulse Right Brachial Pulse Rate: 90 Pulse Assessment Method: Automatic Cuff - Respirations Respiratory Rate: 16 Oxygen Delivery Method: Room Air O2 Sat by Pulse Oximetry: 97 - Blood Pressure Right Arm Blood Pressure: 124/74 Blood Pressure Mean: 90 Blood Pressure Source: Automatic Cuff Medical Screen Scoring (Pre) - Uterine Contractions Frequency: Scheduled / = 6 Duration: > 40 seconds = 2 Intensity: N/A - Maternal Vital Signs Maternal Temperature: N/A Signs of Preeclampsia: N/A Maternal Respirations: N/A - Pain Assessment Pain Location and Character: Left, Lower, Abdomen Pain Scale Used: Numeric (1 - 10) Pain Intensity: 3 Pain Description: *Acute, Cramping Pain Frequency: Intermittent Pain Duration: 1 Pain Duration Units: Days Pain Behavior: None Exhibited - Maternal Trauma Maternal Trauma: N/A - Assessment Baseline FHR: 120 Heart Rate - NICHD Category: Category I (Normal) = 0 NST: Reactive Position: N/A - Total Score Total Score (Pre): 8 - Level of Risk Level of Risk: Medium (6-9) Disposition - Disposition OB Disposition: Admit, Triage I agree with the RN Medical Screening Exam: Yes Risk & Benefit of care provided described in d/c instruction: Yes Diagnosis: ENCOUNTER FOR FULL-TERM UNCOMPLICATED DELIVERY
[2018-05-01 19:57] LABS: Basophils % (A) 0 %; Eosinophils # (A) 0.1 k/uL (0-0.7); Eosinophils % (A) 1 %; HCT 43.5 % (34.0-46.0); Lymphocytes # (A) 2.5 k/uL (1.0-4.8); Lymphocytes % (A) 21 %; MCH 29.8 pg (25.0-35.0); MCHC 32.1 g/dL (31.0-37.0); MCV 92.7 fL (80.0-100.0); Mean Platelet Volume 8.3; Monocytes # (A) 0.5 k/uL (0-1.0); Monocytes % (A) 4 %; Neutrophils # (A) 8.3 k/uL (1.3-7.7); Neutrophils % (A) 72 %; Platelet Count 215 k/uL (150-450); RBC 4.69 m/uL (3.80-5.40); RDW 14.4 % (11.5-15.5); WBC 11.6 k/uL (3.8-10.6)
[2018-05-01 19:57] LABS: Glucose,Whole Blood 75 mg/dL (75-99)
[2018-05-01 20:03] VITALS: BMI 33.8
[2018-05-01] MEDS ORDERED: MORPHINE SULFATE (PF) 0.3 MG/0.3 ML SYR ONE (20:19)
[2018-05-01] MEDS ORDERED: ONDANSETRON 4 MG/2 ML VIAL ONE (20:19)
[2018-05-01] MEDS ORDERED: KETOROLAC 30 MG/ML 1 ML VIAL ONE (20:19)
[2018-05-01] MEDS ORDERED: ePHEDrine SULFATE/0.9% NACL/PF 50 MG/5 ML SYRINGE IV ONE (20:19)
[2018-05-01] MEDS ORDERED: NALBUPHINE 10 MG/ML VIAL (10ML MDV) ONE (20:19)
[2018-05-01] MEDS ORDERED: OXYTOCIN 10 UNIT/ML 1 ML VIAL ONE (20:19)
[2018-05-01] MEDS ORDERED: ONDANSETRON 4 MG/2 ML VIAL IVP PRN (21:19)
[2018-05-01] MEDS ORDERED: HYDROcodone/APAP 7.5-325MG 1 EACH TAB PO PRN (21:19)
[2018-05-01] MEDS ORDERED: SIMETHICONE 80 MG CHEWABLE PO PRN (21:19)
[2018-05-01] MEDS ORDERED: LANOLIN CREAM 5 GM TUBE TOPICAL PRN (21:19)
[2018-05-01] MEDS ORDERED: diphenhydrAMINE 25 MG CAP PO PRN (21:19)
[2018-05-01] MEDS ORDERED: NALOXONE 0.4 MG/ML 1 ML VIAL IV PRN ×2 (21:19→22:10)
[2018-05-01] MEDS ORDERED: ZOLPIDEM 5 MG TAB PO PRN (21:19)
[2018-05-01] MEDS ORDERED: diphenhydrAMINE 50 MG/ML 1 ML VIAL IVP PRN ×3 (21:19→22:10)
[2018-05-01] MEDS ORDERED: METOCLOPRAMIDE 5 MG/ML 2 ML VIAL IVP PRN (21:19)
--- NOTE | 2018-05-01 21:26 | P.OP ---
Date of Procedure: 05/01/18 Preoperative Diagnosis: 1. at 38 weeks 3 days 2. Spontaneous rupture of membranes 3. previous 4. gestational diabetes A2 5. polyhydramnios 6. macrosomia Postoperative Diagnosis: same Procedure(s) Performed: repeat low transverse Anesthesia: spinal Surgeon: Yisel Caceres Telephone Answering Service Operator #1: Bisi Persaud Estimated Blood Loss (ml): 700 IV fluids (ml): 1,000 Urine output (ml): 100 Pathology: none sent Condition: stable Disposition: floor Operative Findings: viable male, 9,9, weight 9#3oz Description of Procedure: Patient was taken to the operating room where spinal anesthesia was found be adequate. She was prepped and draped in normal sterile fashion in dorsal supine position with a leftward tilt. Pfannenstiel skin incision was made the scalpel and carried through to the underlying layer of fascia with the scalpel. Fascia was incised in midline and carried bilaterally with the Aguirre scissors. The superior aspect of the fascial incision was grasped with Letcher clamps elevated and the underlying rectus muscles dissected off with the Aguirre's. Attention was then turned to inferior aspect of same incision which in a similar fashion was grasped tented up and the underlying rectus muscles dissected off with the Aguirre's. The rectus muscles were the midline and the peritoneum was identified tented up and entered sharply with the scalpel. The incision was extended superiorly and inferiorly with good visualization of the bladder. The bladder blade was inserted and the vesicouterine peritoneum was incised the Metzenbaums then carried bilaterally and bladder flap created digitally. A low transverse incision was then made on the uterus with the scalpel. This was carried bilaterally and digital manner. Infant's head delivered atraumatically, nose and mouth bulb suctioned, cord clamped and cut, handed off to waiting nurses. Apgars 9, 9, weight 9 lbs. 3 oz. Placenta delivered manually, intact with three-vessel cord. The uterus is exteriorized and cleared of all clots and debris. The uterine incision was closed with 0 Vicryl in a running locked fashion. Second layer of the same sutures used in imbricating fashion to obtain excellent hemostasis. Bladder flap was then reapproximated using 2-0 Vicryl in a running fashion. Both ovaries and tubes appeared normal. The uterus was placed back into the abdomen. The peritoneum was reapproximated using 2-0 Vicryl in a running fashion. The muscles were reapproximated using 2-0 Vicryl in interrupted fashion. The fascia was reapproximated using 0 Vicryl in a running fashion. The subcutaneous tissues closed with 3-0 Vicryl running fashion. The skin was closed vy. Patient tolerated the procedure well, sponge and instrument counts were correct times 2 and she was taken to the recovery room in stable condition.
[2018-05-01] MEDS ORDERED: OXYTOCIN 20 UNITS/1000 ML NS 1,000 ML IV SCH (21:30)
[2018-05-01] MEDS ORDERED: MORPHINE SULFATE 4 MG/ML SYRINGE IVP PRN (22:10)
[2018-05-02] MEDS: KETOROLAC 30 MG/ML 1 ML VIAL IVP PRN ×3 (02:42→16:07)
[2018-05-02] MEDS: LACTATED RINGERS 1,000 ML IV SCH ×2 (04:38→17:19)
[2018-05-02 05:40] LABS: Hemoglobin A1C 5.6 % (4.0-6.0)
--- NOTE | 2018-05-02 06:12 | P.PNOBGPC ---
Subjective - Subjective Patient reports: Reports appetite normal, Reports voiding normally, Reports pain well controlled, Reports ambulating normally : doing well Objective - Vital Signs Latest vital signs: Vital Signs Temp Pulse Resp BP Pulse Ox 05/02/18 03:30 98.1 F 92 16 107/66 100 05/02/18 03:11 100 05/02/18 03:00 16 100 05/02/18 01:11 16 05/01/18 23:16 89 16 117/64 98 05/01/18 23:11 89 16 98 05/01/18 22:46 100 16 125/75 99 05/01/18 22:11 85 16 117/76 100 05/01/18 21:56 93 16 134/86 99 05/01/18 21:41 88 16 125/60 98 05/01/18 21:26 100 16 121/61 98 05/01/18 21:12 97.5 F L 107 H 16 131/64 97 05/01/18 19:56 97.7 F 90 16 124/74 97 05/01/18 19:49 97.7 F 90 16 124/74 97 05/01/18 18:44 97.7 F 90 16 124/74 97 Intake and Output 05/01/18 05/01/18 05/02/18 14:59 22:59 06:59 Intake Total 2000 Output Total 700 950 Balance 1300 -950 Intake: IV 2000 Lactated Ringers 1,000 ml 1000 @ 125 mls/hr IV [facility] Rx#:[id number] Output: Urine 0 950 Uretheral (Lloyd) 250 Estimated Blood Loss 700 Other: Weight 97.976 kg - Exam Lungs: bilateral: normal Chest: Normal S1, Normal S2 Extremities: Present: normal Abdomen: Present: normal appearance, soft. Absent: distention, tenderness Incision: Present: normal, dry, intact Uterus: Present: normal, firm - Labs Labs: Abnormal Lab Results - Last 24 Hours (Table) 05/01/18 Range/Units 19:45 WBC 11.6 H (3.8-10.6) k/uL Neutrophils # 8.3 H (1.3-7.7) k/uL Assessment and Plan Assessment: Post operative day #2. Patient is resting without complaints. Vital signs are stable she's afebrile. Her incision is intact and dry. My impression is that this is a normal postoperative course. Plan is to advance her diet, encourage ambulation, allow the patient to shower, and check a CBC. (1) Previous section Current Visit: Yes Status: Acute Code(s): Z98.891 - HISTORY OF UTERINE SCAR FROM PREVIOUS SURGERY SNOMED Code(s): 794804205
[2018-05-02 08:22] LABS: Basophils % (A) 0 %; Eosinophils # (A) 0.1 k/uL (0-0.7); Eosinophils % (A) 1 %; HCT 36.4 % (34.0-46.0); HGB 11.9 gm/dL (11.4-16.0); Lymphocytes # (A) 1.5 k/uL (1.0-4.8); Lymphocytes % (A) 14 %; MCH 30.2 pg (25.0-35.0); MCHC 32.6 g/dL (31.0-37.0); MCV 92.6 fL (80.0-100.0); Mean Platelet Volume 8.9; Monocytes # (A) 0.4 k/uL (0-1.0); Monocytes % (A) 4 %; Neutrophils # (A) 8.9 k/uL (1.3-7.7); Neutrophils % (A) 81 %; Platelet Count 158 k/uL (150-450); RBC 3.93 m/uL (3.80-5.40); RDW 14.2 % (11.5-15.5); WBC 11.1 k/uL (3.8-10.6)
[2018-05-02] MEDS: SENNOSIDES-DOCUSATE SODIUM 1 EACH TAB PO SCH ×2 (08:29→21:16)
--- NOTE | 2018-05-02 17:10 | P.PN ---
Progress Note - Text Progress Note Date: 05/02/18 27 yo female status post . Post-op day #1. Patient received intrathecal Duramorph. Patient was seen today, sitting up in bed no complaints, pain VAS score 0/10, no headache, mild itching, no nausea and vomiting. Assessment and plan: Doing well in general no complications from anesthesia. Asked the floor RN to give Benadryl for itching.
[2018-05-02] MEDS: diphenhydrAMINE 50 MG CAP PO PRN (17:11)
[2018-05-02 17:13] VITALS: RESP 16
[2018-05-02] MEDS: ACETAMINOPHEN TAB 325 MG TAB PO PRN (21:16)
[2018-05-03] MEDS: IBUPROFEN 600 MG TAB PO PRN ×4 (02:07→21:35)
[2018-05-03] MEDS: ACETAMINOPHEN TAB 325 MG TAB PO PRN ×3 (03:21→20:19)
--- NOTE | 2018-05-03 06:50 | P.PNOBGPC ---
Subjective - Subjective Patient reports: Reports appetite normal, Reports voiding normally, Reports pain well controlled, Reports ambulating normally : doing well Objective - Vital Signs Latest vital signs: Vital Signs Temp Pulse Resp BP BP Pulse Ox 05/03/18 02:30 98.1 F 82 16 118/68 100 05/02/18 21:00 16 100 05/02/18 20:00 98.2 F 99 16 109/64 100 05/02/18 18:39 16 97 05/02/18 17:00 16 05/02/18 16:18 98.5 F 93 18 98/49 97 05/02/18 15:00 97 05/02/18 12:00 98.4 F 83 16 102/58 99 05/02/18 11:00 98 05/02/18 09:00 16 05/02/18 08:12 98.8 F 90 18 105/63 97 05/02/18 07:00 16 Intake and Output 05/02/18 05/02/18 05/03/18 14:59 22:59 06:59 Output Total 900 600 Balance -900 -600 Output: Urine 900 600 Other: # Voids 1 - Exam Lungs: bilateral: normal Chest: Normal S1, Normal S2 Extremities: Present: normal Abdomen: Present: normal appearance, soft. Absent: distention, tenderness Incision: Present: normal, dry, intact Uterus: Present: normal, firm - Labs Labs: Abnormal Lab Results - Last 24 Hours (Table) 05/02/18 Range/Units 07:47 WBC 11.1 H (3.8-10.6) k/uL Neutrophils # 8.9 H (1.3-7.7) k/uL Assessment and Plan Assessment: Post operative day #2. Patient is resting without new complaints. Vital signs are stable she's afebrile. Hemoglobin was normal. Patient is tolerating regular diet, ambulating, urinating without difficulty. My impression is a normal postoperative course. Plan is to continue routine postoperative care discharge home tomorrow most likely (1) Previous section Current Visit: Yes Status: Acute Code(s): Z98.891 - HISTORY OF UTERINE SCAR FROM PREVIOUS SURGERY SNOMED Code(s): 483477451
[2018-05-03] MEDS: diphenhydrAMINE 50 MG CAP PO PRN (07:45)
[2018-05-03] MEDS: SENNOSIDES-DOCUSATE SODIUM 1 EACH TAB PO SCH ×2 (07:46→20:12)
[2018-05-04] MEDS: IBUPROFEN 600 MG TAB PO PRN ×2 (05:12→12:13)
--- NOTE | 2018-05-04 06:30 | P.PNOBGPC ---
Subjective - Subjective Patient reports: Reports appetite normal, Reports voiding normally, Reports pain well controlled, Reports ambulating normally : doing well Objective - Vital Signs Latest vital signs: Vital Signs Temp Pulse Resp BP BP Pulse Ox 05/04/18 00:00 98.2 F 89 16 117/63 97 05/03/18 16:30 97.8 F 100 16 117/72 99 05/03/18 08:00 98.4 F 83 16 107/71 - Exam Lungs: bilateral: normal Chest: Normal S1, Normal S2 Extremities: Present: normal Abdomen: Present: normal appearance, soft. Absent: distention, tenderness Incision: Present: normal, dry, intact Uterus: Present: normal, firm Assessment and Plan Assessment: Postoperative day #3. Patient is resting without complaints and wishes to go home. Vital signs are stable she's afebrile. Uterus is firm nontender and she is having normal lochia. Her incision is intact and dry. My impression is a normal post operative course. Plan is to continue routine post operative care and discharge home later today. (1) Previous section Current Visit: Yes Status: Acute Code(s): Z98.891 - HISTORY OF UTERINE SCAR FROM PREVIOUS SURGERY SNOMED Code(s): 228897639
--- NOTE | 2018-05-04 06:33 | P.DS ---
Providers Date of admission: 05/01/18 19:34 Expected date of discharge: 05/04/18 Attending physician: Beny Ybarra Primary care physician: Stated None - Discharge Diagnosis(es) (1) Previous section Current Visit: Yes Status: Acute Hospital Course: Please see dictated H&P for intimate details of this patient's admission. Brief summary this is a pleasant 27-year-old 2 para 1 female 38-3/7 weeks gestation admitted to labor and delivery spontaneous rupture membranes. Patient subsequently went on to have a repeat low transverse section for viable male . Please see dictated delivery note. Postoperative and 3 patient's felt be stable for discharge home follow up with me in 1 week. Of note please see dictated operative note Dr. Caceres the lower uterine segment. I did discuss this with the patient and concerns for future pregnancies. Procedures: Repeat low transverse section. Patient Condition at Discharge: Good Plan - Discharge Summary New Discharge Prescriptions: No Action Pedi Multivit No.25/Folic Acid [Flintstones Multivit Chew Tab] 1 tab PO DAILY Insulin Lispro [humaLOG Kwikpen] 10 unit SQ HS Discharge Medication List Pedi Multivit No.25/Folic Acid [Flintstones Multivit Chew Tab] 1 tab PO DAILY [History] Insulin Lispro [humaLOG Kwikpen] 10 unit SQ HS 05/01/18 [History]
[2018-05-04] MEDS: SENNOSIDES-DOCUSATE SODIUM 1 EACH TAB PO SCH (08:21)
[2018-05-04] MEDS: ACETAMINOPHEN TAB 325 MG TAB PO PRN ×2 (08:21→14:22)
[2018-05-04 08:42] VITALS: BP 126/70; PULSE 91; TEMP 98.3
== END 2018-05-04 15:55 | disposition home or self-care (01) | DRG 788 ==
LOC: FBPOP 18:30 → 4FBP 19:34
PROVIDERS: ADMIT Obstetrics & Gynecology; ATTEND Obstetrics & Gynecology
PROC: 10D00Z1 Extraction of Products of Conception, Low, Open Approach (ICD-10-PCS; principal; 2018-05-01 20:33)
DX: O42.92 Full-term premature rupture of membranes, unspecified as to length of time between rupture and onset of labor (principal); O40.3XX0 Polyhydramnios, third trimester, not applicable or unspecified; Z37.0 Single live birth; O24.424 Gestational diabetes mellitus in childbirth, insulin controlled; O34.211 Maternal care for low transverse scar from previous cesarean delivery; O36.63X0 Maternal care for excessive fetal growth, third trimester, not applicable or unspecified; Z3A.38 38 weeks gestation of pregnancy
CPT/HCPCS: 59025; 83036; 84112; 85025; 86850; 86900; 86901; 99213

== ENCOUNTER 2018-05-09 19:50 | Emergency (ER) | payer BC ==
[2018-05-09 21:09] LABS: Appearance,Urine Clear (Clear); Bilirubin,Urine Negative (Negative); Blood,Urine Moderate (Negative); Color,Urine Yellow; Glucose,Urine (UA) Negative (Negative); Ketones,Urine Negative (Negative); Leukocyte Esterase,Urine Moderate (Negative); Mucus,Urine Rare /hpf; Nitrite,Urine Negative (Negative); Protein,Urine Negative (Negative); RBC,Urine >182 /hpf (0-5); Specific Gravity,Urine 1.019 (1.001-1.035); Urobilinogen,Urine <2.0 mg/dL (<2.0); WBC,Urine 25 /hpf (0-5)
--- NOTE | 2018-05-09 21:13 | XR ---
EXAMINATION: XR chest 2V DATE AND TIME: 05/09/2018 9:08 PM CLINICAL INDICATION: Pain TECHNIQUE: PA and lateral COMPARISON: None. FINDINGS: The lungs are clear. The pleural spaces are negative. The cardiac silhouette is not enlarged. The remainder of the mediastinal silhouette is unremarkable. The skeletal structures and soft tissues are negative for acute findings. IMPRESSION: NO ACUTE PROCESS.
[2018-05-09 21:14] LABS: ALT 23 U/L (9-52); AST 23 U/L (14-36); Alkaline Phosphatase 112 U/L (38-126); Anion Gap 11 mmol/L; Blood Urea Nitrogen 18 mg/dL (7-17); Calcium 9.1 mg/dL (8.4-10.2); Carbon Dioxide 19 mmol/L (22-30); Chloride 111 mmol/L (98-107); Glucose 91 mg/dL (74-99); Sodium 141 mmol/L (137-145); Total Bilirubin 0.4 mg/dL (0.2-1.3); Total Protein 7.1 g/dL (6.3-8.2)
[2018-05-09 21:15] LABS: Potassium 4.3 mmol/L (3.5-5.1)
[2018-05-09 21:40] LABS: Basophils % (A) 0 %; Eosinophils # (A) 0.1 k/uL (0-0.7); Eosinophils % (A) 1 %; HCT 39.3 % (34.0-46.0); HGB 12.9 gm/dL (11.4-16.0); Lymphocytes % (A) 11 %; MCH 30.3 pg (25.0-35.0); MCHC 32.9 g/dL (31.0-37.0); MCV 92.1 fL (80.0-100.0); Mean Platelet Volume 6.9; Monocytes # (A) 0.3 k/uL (0-1.0); Monocytes % (A) 4 %; Neutrophils # (A) 7.4 k/uL (1.3-7.7); Neutrophils % (A) 83 %; Platelet Count 312 k/uL (150-450); RBC 4.27 m/uL (3.80-5.40); RDW 13.9 % (11.5-15.5); WBC 8.9 k/uL (3.8-10.6)
[2018-05-09] MEDS ORDERED: ACETAMINOPHEN IV (For NPO) 1,000 MG in EMPTY BAG 1 BAG IVPB STA (21:47)
--- NOTE | 2018-05-09 22:40 | ED ---
Female Urogenital HPI - General Source: patient Mode of arrival: ambulatory Limitations: no limitations <Marsha Young - Last Filed: 05/10/18 02:36> <Arlyn Hidalgo - Last Filed: 05/10/18 06:13> - General Chief complaint: Vaginal Bleeding Stated complaint: post pain/fever Time Seen by Provider: 05/09/18 21:25 - History of Present Illness Initial comments: 27-year-old female patient who is 8 days after delivery presents to the emergency department today for complaints of chills and lower abdominal pain. Patient states that she is having a "contraction" like pain in her lower abdomen that radiates through to her back. Patient states that she is having generalized chills, has not checked her temperature. States she has increased vaginal bleeding today passage of quarter size clots. Patient denies any odor to the vaginal bleeding. States her incision is healing well with no signs of redness or drainage. She denies any hematuria, dysuria, urinary frequency, urinary urgency. She denies any cough, congestion, sore throat, or nasal drainage. Patient denies any recent rash, shortness breath, chest pain, nausea, vomiting, diarrhea, constipation, numbness, tingling, dizziness, weakness, headache, visual changes, or any other complaints. (Marsha Young) - Related Data Home Medications Medication Instructions Recorded Confirmed Acetaminophen Tab [Tylenol Tab] 1,000 mg PO Q6HR PRN 05/09/18 05/09/18 Cephalexin [Keflex] 500 mg PO QID 05/09/18 05/09/18 Ibuprofen [Motrin Ib] 600 mg PO TID PRN 05/09/18 05/09/18 Allergies Allergy/AdvReac Type Severity Reaction Status Date / Time No Known Allergies Allergy Verified 05/09/18 21:18 Review of Systems ROS Other: All systems not noted in ROS Statement are negative. <Marsha Young - Last Filed: 05/10/18 02:36> ROS Other: All systems not noted in ROS Statement are negative. <Arlyn Hidalgo - Last Filed: 05/10/18 06:13> ROS Statement: Those systems with pertinent positive or pertinent negative responses have been documented in the HPI. Past Medical History Past Medical History: No Reported History Additional Past Medical History / Comment(s): Patient has a history of GERD and hiatal hernia. Obstetric history: Her first was a primary section for macrosomia, 10 lbs. 9 oz. This is her second . 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 She did not do genetic testing. She does have gestational diabetes and is on insulin. She does have macrosomia and polyhydramnios with this . GBS negative. O+, antibodies negative, rubella immune, RPR nonreactive, this B-, HIV nonreactive. History of Any Multi-Drug Resistant Organisms: None Reported Past Surgical History: No Surgical Hx Reported, Section Additional Past Surgical History / Comment(s): Patient's had an upper endoscopy. X2. Past Anesthesia/Blood Transfusion Reactions: No Reported Reaction Past Psychological History: No Psychological Hx Reported Smoking Status: Never smoker Past Alcohol Use History: None Reported Past Drug Use History: None Reported - Past Family History Father Family Medical History: No Reported History <Marsha Young - Last Filed: 05/10/18 02:36> General Exam Limitations: no limitations General appearance: alert, in no apparent distress, other (Some well-developed, well-nourished adult female patient in no acute distress. Vital signs upon presentation are temperature 99.0F, pulse 93, respirations 18, blood pressure 126/70, pulse ox 99% on room air.) Eye exam: Present: normal appearance, PERRL, EOMI. Absent: scleral icterus, conjunctival injection, periorbital swelling ENT exam: Present: normal exam, normal oropharynx, mucous membranes moist Neck exam: Present: normal inspection. Absent: tenderness, meningismus, lymphadenopathy Respiratory exam: Present: normal lung sounds bilaterally. Absent: respiratory distress, wheezes, rales, rhonchi, stridor Cardiovascular Exam: Present: regular rate, normal rhythm, normal heart sounds. Absent: systolic murmur, diastolic murmur, rubs, gallop, clicks GI/Abdominal exam: Present: soft, tenderness (suprapubic), normal bowel sounds. Absent: distended, guarding, rebound, rigid Neurological exam: Present: alert, oriented X3, CN II-XII intact Psychiatric exam: Present: normal affect, normal mood Skin exam: Present: warm, dry, intact, normal color. Absent: rash <Marsha Young - Last Filed: 05/10/18 02:36> Vital Signs 05/09/18 05/09/18 05/09/18 19:58 22:41 23:00 Temperature 99.0 F 100.4 F H Pulse Rate 93 81 Respiratory 18 20 Rate Blood Pressure 126/78 133/66 O2 Sat by Pulse 99 98 Oximetry 05/10/18 00:33 Temperature 99.1 F Pulse Rate 76 Respiratory 18 Rate Blood Pressure 110/61 O2 Sat by Pulse Oximetry Medical Decision Making - Lab Data Result diagrams: 05/09/18 20:36 05/09/18 20:36 - Radiology Data Radiology results: report reviewed <Marsha Young - Last Filed: 05/10/18 02:36> - Lab Data Result diagrams: 05/09/18 20:36 05/09/18 20:36 <Arlyn Hidalgo - Last Filed: 05/10/18 06:13> - Medical Decision Making 27-year-old female patient presents to the emergency department today for evaluation of increased vaginal bleeding, lower abdominal pain, lower back pain and chills. Patient is 8 days . Physical examination did reveal some suprapubic abdominal tenderness. Incision is intact with no evidence of erythema or drainage. Patient did have temperature in the emergency department 100.4F. Urinalysis showed no evidence of acute infection. Ultrasound was obtained and did show complex fluid collection in the lower uterine segment that is possibly retained products versus hemorrhage versus endometritis. Patient has taken 24 hours worth of Keflex. My attending Dr. Hidalgo did speak to the armature winder Dr. Ybarra who instructed that the patient continue taking her Keflex and to follow-up with him in the office this week. I did recommend a pelvic examination, patient declined stating that she would rather be discharged home without this exam. Return parameters were discussed in detail. She verbalizes understanding and agrees with this plan. (Marsha Young) I was available for consultation in the emergency department. The history and physical exam were done by the midlevel provider. I was consulted for this patient's care. I reviewed the case with the midlevel provider and based on their presentation of the patient, I agree with the assessment, medical decision making and plan of care as documented. I discussed patient care with patient's OR NURSE MANAGER, Dr. Ybarra. Based on patient' s history, physical exam, lab findings he doesn't feel there is any indication for admission or IV antibiotics. He recommends continuing Keflex and follow-up in the office. Patient is to see Dr. Ybarra on Tuesday. (Arlyn Hidalgo) - Lab Data Lab Results 05/09/18 05/09/18 05/09/18 Range/Units 20:36 20:36 20:36 WBC 8.9 (3.8-10.6) k/uL RBC 4.27 (3.80-5.40) m/uL Hgb 12.9 (11.4-16.0) gm/dL Hct 39.3 (34.0-46.0) % MCV 92.1 (80.0-100.0) fL MCH 30.3 (25.0-35.0) pg MCHC 32.9 (31.0-37.0) g/dL RDW 13.9 (11.5-15.5) % Plt Count 312 (150-450) k/uL Neutrophils % 83 % Lymphocytes % 11 % Monocytes % 4 % Eosinophils % 1 % Basophils % 0 % Neutrophils # 7.4 (1.3-7.7) k/uL Lymphocytes # 1.0 (1.0-4.8) k/uL Monocytes # 0.3 (0-1.0) k/uL Eosinophils # 0.1 (0-0.7) k/uL Basophils # 0.0 (0-0.2) k/uL Sodium 141 (137-145) mmol/L Potassium 4.3 (3.5-5.1) mmol/L Chloride 111 H (98-107) mmol/L Carbon Dioxide 19 L (22-30) mmol/L Anion Gap 11 mmol/L BUN 18 H (7-17) mg/dL Creatinine 0.57 (0.52-1.04) mg/dL Est GFR (CKD-EPI)AfAm >90 (>60 ml/min/1.73 sqM) Est GFR (CKD-EPI)NonAf >90 (>60 ml/min/1.73 sqM) Glucose 91 (74-99) mg/dL Plasma Lactic Acid Jorge L (0.7-2.0) mmol/L Calcium 9.1 (8.4-10.2) mg/dL Total Bilirubin 0.4 (0.2-1.3) mg/dL AST 23 (14-36) U/L ALT 23 (9-52) U/L Alkaline Phosphatase 112 (38-126) U/L Total Protein 7.1 (6.3-8.2) g/dL Albumin 4.0 (3.5-5.0) g/dL Urine Color Yellow Urine Appearance Clear (Clear) Urine pH 6.0 (5.0-8.0) Ur Specific Harwood 1.019 (1.001-1.035) Urine Protein Negative (Negative) Urine Glucose (UA) Negative (Negative) Urine Ketones Negative (Negative) Urine Blood Moderate H (Negative) Urine Nitrite Negative (Negative) Urine Bilirubin Negative (Negative) Urine Urobilinogen <2.0 (<2.0) mg/dL Ur Leukocyte Esterase Moderate H (Negative) Urine RBC >182 H (0-5) /hpf Urine WBC 25 H (0-5) /hpf Urine Mucus Rare H (None) /hpf 05/09/18 Range/Units 22:12 WBC (3.8-10.6) k/uL RBC (3.80-5.40) m/uL Hgb (11.4-16.0) gm/dL Hct (34.0-46.0) % MCV (80.0-100.0) fL MCH (25.0-35.0) pg MCHC (31.0-37.0) g/dL RDW (11.5-15.5) % Plt Count (150-450) k/uL Neutrophils % % Lymphocytes % % Monocytes % % Eosinophils % % Basophils % % Neutrophils # (1.3-7.7) k/uL Lymphocytes # (1.0-4.8) k/uL Monocytes # (0-1.0) k/uL Eosinophils # (0-0.7) k/uL Basophils # (0-0.2) k/uL Sodium (137-145) mmol/L Potassium (3.5-5.1) mmol/L Chloride (98-107) mmol/L Carbon Dioxide (22-30) mmol/L Anion Gap mmol/L BUN (7-17) mg/dL Creatinine (0.52-1.04) mg/dL Est GFR (CKD-EPI)AfAm (>60 ml/min/1.73 sqM) Est GFR (CKD-EPI)NonAf (>60 ml/min/1.73 sqM) Glucose (74-99) mg/dL Plasma Lactic Acid Jorge L 1.3 (0.7-2.0) mmol/L Calcium (8.4-10.2) mg/dL Total Bilirubin (0.2-1.3) mg/dL AST (14-36) U/L ALT (9-52) U/L Alkaline Phosphatase (38-126) U/L Total Protein (6.3-8.2) g/dL Albumin (3.5-5.0) g/dL Urine Color Urine Appearance (Clear) Urine pH (5.0-8.0) Ur Specific Harwood (1.001-1.035) Urine Protein (Negative) Urine Glucose (UA) (Negative) Urine Ketones (Negative) Urine Blood (Negative) Urine Nitrite (Negative) Urine Bilirubin (Negative) Urine Urobilinogen (<2.0) mg/dL Ur Leukocyte Esterase (Negative) Urine RBC (0-5) /hpf Urine WBC (0-5) /hpf Urine Mucus (None) /hpf - Radiology Data Two-view x-ray of the chest is obtained. Report was reviewed in its entirety. Impression by Dr. Sheila Hodgson shows no acute process. Transvaginal ultrasound obtained, impression by Dr. Stanley shows ovaries are not seen. Complex fluid in the lower uterine segment within the endometrial cavity. This is nonspecific and could relate to retained products or hemorrhage or endometritis. (Marsha Young) Disposition Is patient prescribed a controlled substance at d/c from ED?: No Time of Disposition: 01:05 <Marsha Young - Last Filed: 05/10/18 02:36> <Arlyn Hidalgo - Last Filed: 05/10/18 06:13> Clinical Impression: Vaginal bleeding, Fever Disposition: HOME SELF-CARE Condition: Good Instructions: Fever in Adults (ED), Bleeding (ED) Additional Instructions: Alternate Tylenol Motrin for fever control. Follow-up with your OR NURSE MANAGER as you have planned on Tuesday. Return here immediately for any new, worsening, or concerning symptoms. Referrals: Beny Ybarra MD [STAFF PHYSICIAN] - 1-2 days
--- NOTE | 2018-05-09 23:09 | US ---
EXAMINATION TYPE: US transvaginal DATE OF EXAM: 05/09/2018 COMPARISON: NONE CLINICAL HISTORY: Pain; 8 days Post ; Fever. x 8 days ago pain and fever. TECHNIQUE: Transvaginal (TV). EXAM MEASUREMENTS: Uterus: 16.8 x 8.1 x 6.9 cm Endometrial Stripe: 2.3 cm 1. Uterus: Anteverted Complex fluid collection EMIL measuring 7.7 x 4.8 x 4.9cm. 2. Endometrium: Thickened . 3. Right Ovary: Obscured by overlying bowel gas 4. Left Ovary: Obscured by overlying bowel gas 5. Bilateral Adnexa: wnl 6. Posterior cul-de-sac: wnl IMPRESSION: Ovaries are not seen. There is complex fluid in the lower uterine segment within the endo metrial cavity. This is nonspecific and could relate to retained products or hemorrhage or endometrit is.
[2018-05-10 00:34] VITALS: BP 110/61; PULSE 76; RESP 18; TEMP 99.1
== END 2018-05-10 01:20 | disposition home or self-care (01) ==
LOC: EC 19:50
DX: O72.1 Other immediate postpartum hemorrhage (principal); O99.89 Other specified diseases and conditions complicating pregnancy, childbirth and the puerperium; R50.9 Fever, unspecified; M54.5 Low back pain; Z98.890 Other specified postprocedural states; Z53.29 Procedure and treatment not carried out because of patient's decision for other reasons
CPT/HCPCS: 36415; 80053; 83605; 85025; 81001; 87040; 87086; 71046; 76830; 99284; 96374; J0131

== ENCOUNTER 2018-06-21 20:02 | Emergency (ER) | payer BC ==
--- NOTE | 2018-06-21 20:53 | ED ---
Upper Extremity HPI - General Chief Complaint: Extremity Injury, Upper Stated Complaint: R elbow pain Time Seen by Provider: 06/21/18 20:09 Source: patient, RN notes reviewed, old records reviewed Mode of arrival: ambulatory Limitations: no limitations - History of Present Illness Initial Comments: Patient's 27-year-old female presents emergency Department chief complaint of right elbow pain. Patient reports that she tripped over some toys and fell on an outstretched arm. She complains of pain over the medial aspect of her elbow radiating towards her thumb. Patient states that she has had no previous injuries to this elbow that she knows. Patient states she has no other complaints. - Related Data Home Medications Medication Instructions Recorded Confirmed Acetaminophen Tab [Tylenol Tab] 1,000 mg PO Q6HR PRN 05/09/18 05/09/18 Cephalexin [Keflex] 500 mg PO QID 05/09/18 05/09/18 Ibuprofen [Motrin Ib] 600 mg PO TID PRN 05/09/18 05/09/18 Allergies Allergy/AdvReac Type Severity Reaction Status Date / Time No Known Allergies Allergy Verified 06/21/18 20:09 Review of Systems ROS Statement: Those systems with pertinent positive or pertinent negative responses have been documented in the HPI. ROS Other: All systems not noted in ROS Statement are negative. Past Medical History Past Medical History: No Reported History Additional Past Medical History / Comment(s): Patient has a history of GERD and hiatal hernia. Obstetric history: Her first was a primary section for macrosomia, 10 lbs. 9 oz. This is her second . 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 She did not do genetic testing. She does have gestational diabetes and is on insulin. She does have macrosomia and polyhydramnios with this . GBS negative. O+, antibodies negative, rubella immune, RPR nonreactive, this B-, HIV nonreactive. History of Any Multi-Drug Resistant Organisms: None Reported Past Surgical History: No Surgical Hx Reported, Section Additional Past Surgical History / Comment(s): Patient's had an upper endoscopy. X2. Past Anesthesia/Blood Transfusion Reactions: No Reported Reaction Past Psychological History: No Psychological Hx Reported Smoking Status: Never smoker Past Alcohol Use History: None Reported Past Drug Use History: None Reported - Past Family History Father Family Medical History: No Reported History General Exam - General Exam Comments Initial Comments: Well-appearing 27-year-old female. No significant distress. Limitations: no limitations General appearance: alert, in no apparent distress Head exam: Present: atraumatic, normocephalic, normal inspection Eye exam: Present: normal appearance, PERRL, EOMI. Absent: scleral icterus, conjunctival injection, periorbital swelling ENT exam: Present: normal exam, mucous membranes moist Neck exam: Present: normal inspection. Absent: tenderness, meningismus, lymphadenopathy Respiratory exam: Present: normal lung sounds bilaterally. Absent: respiratory distress, wheezes, rales, rhonchi, stridor Cardiovascular Exam: Present: regular rate, normal rhythm, normal heart sounds. Absent: systolic murmur, diastolic murmur, rubs, gallop, clicks GI/Abdominal exam: Present: soft, normal bowel sounds. Absent: distended, tenderness, guarding, rebound, rigid Extremities exam: Present: normal inspection, full ROM, normal capillary refill. Absent: tenderness, pedal edema, joint swelling, calf tenderness Right Upper Arm exam: Present: normal inspection, full ROM Elbow exam: Present: normal inspection, tenderness (Over radial head). Absent: full ROM Forearm Wrist exam: Present: normal inspection, full ROM Hand Wrist exam: Present: normal inspection, full ROM Vascular: Present: normal capillary refill Back exam: Present: normal inspection Neurological exam: Present: alert, oriented X3, CN II-XII intact Psychiatric exam: Present: normal affect, normal mood Skin exam: Present: warm, dry, intact, normal color. Absent: rash Course Vital Signs 06/21/18 20:07 Temperature 98.6 F Pulse Rate 83 Respiratory 18 Rate Blood Pressure 141/83 O2 Sat by Pulse 100 Oximetry Procedures - Orthopedic Splinting/Casting Injury #1 Side: right Upper Extremity Injury Location: elbow Upper Extremity Immobilizer: sling/shoulder immobilizer, Higinio wrap Medical Decision Making - Medical Decision Making Is a 27-year-old female presents return to the right elbow pain. Patient to trip and fall of her kids toys. At this time she has pain with range of motion of the elbow. Tenderness over the radial head. She has a normal sensation and capillary refill. Patient x-rays at this time are negative for fracture. Patient was placed in a sling and Higinio wrap. Discussed per symptoms persist a follow-up with orthopedic. Given a temperature medication. Return parameters were discussed. - Radiology Data Radiology results: report reviewed Negative right elbow exam. Negative right forearm exam. Disposition Clinical Impression: Radiohumeral (joint) sprain of right elbow, initial encounter Disposition: HOME SELF-CARE Condition: Good Instructions: Elbow Sprain (ED) Additional Instructions: Patient has a follow-up with PCP Haily. Motrin and Tylenol for pain. Wear the Higinio wrap and sling. Ice the area for 20 minutes every few hours. Return to emergency department if any alarming signs or symptoms occur. Is patient prescribed a controlled substance at d/c from ED?: No Referrals: None,Stated [Primary Care Provider] - 1-2 days Nasim Gaxiola MD [STAFF PHYSICIAN] - 1-2 days Time of Disposition: 21:14
--- NOTE | 2018-06-21 21:06 | XR ---
EXAMINATION TYPE: XR elbow complete RT DATE OF EXAM: 06/21/2018 COMPARISON: NONE HISTORY: Fall. Elbow pain TECHNIQUE: 3 views FINDINGS: I see no fracture nor dislocation. Joint spaces are normal. There is no sign of elbow joint effusion. IMPRESSION: Negative right elbow exam.
--- NOTE | 2018-06-21 21:07 | XR ---
EXAMINATION TYPE: XR forearm RT DATE OF EXAM: 06/21/2018 COMPARISON: NONE HISTORY: Elbow pain TECHNIQUE: 2 views FINDINGS: Radius and ulna appear intact. I see no fracture nor dislocation. Soft tissues appear coni l. IMPRESSION: Negative right forearm exam.
[2018-06-21 21:28] VITALS: BP 138/80; PULSE 73; RESP 16; TEMP 98.4
== END 2018-06-21 21:28 | disposition home or self-care (01) ==
LOC: EC 20:02
DX: S53.411A Radiohumeral (joint) sprain of right elbow, initial encounter (principal); W01.0XXA Fall on same level from slipping, tripping and stumbling without subsequent striking against object, initial encounter; Y92.009 Unspecified place in unspecified non-institutional (private) residence as the place of occurrence of the external cause
CPT/HCPCS: 99284

== ENCOUNTER → 2019-09-07 | Day surgery (SDC) | payer BC ==
[2019-09-05 14:32] VITALS: BMI 30.7
--- NOTE | 2019-09-06 07:19 | P.HPOB ---
History of Present Illness H&P Date: 09/06/19 Chief Complaint: Multi parity desires permanent sterilization. This patient is a pleasant 28-year-old 2 para 2 female who presented to my office on August 03 requesting permanent sterilization. Patient's had 2 previous sections for 2 viable infants however the time of her last C- section she declined tubal ligation. 's plan was to get a vasectomy however his insurance apparently will not cover. Patient is now requesting permanent sterilization by laparoscopic tubal cautery. Past Medical History Past Medical History: No Reported History Additional Past Medical History / Comment(s): Patient has a history of GERD and hiatal hernia. History of Any Multi-Drug Resistant Organisms: None Reported Past Surgical History: Section Additional Past Surgical History / Comment(s): Patient's had an upper endoscopy. X2. Past Anesthesia/Blood Transfusion Reactions: No Reported Reaction Past Psychological History: No Psychological Hx Reported Smoking Status: Never smoker Past Alcohol Use History: None Reported Past Drug Use History: None Reported - Past Family History Father Family Medical History: No Reported History Medications and Allergies Home Medications Medication Instructions Recorded Confirmed Type Norgestimate-Ethinyl Estradiol 1 tab PO DAILY 09/05/19 09/05/19 History [Sprintec 28 Day Tablet] Allergies Allergy/AdvReac Type Severity Reaction Status Date / Time No Known Allergies Allergy Verified 09/05/19 14:28 Exam - OBG Physical Exam Abdomen: bowel sounds normal, no diffuse tenderness, no bruit present, no guarding noted, no hepatomegaly, no splenomegaly, no mass Vulva: both: normal Vagina: normal moisture, no discharge Cervix: no lesion, no discharge Uterus: normal size, normal contour Assessment and Plan Assessment: This is a pleasant 28-year-old 2 para 2 female who is requesting permanent sterilization by laparoscopic tubal cautery. Plan is laparoscopy with bilateral fallopian tube cauterization. Patient I discussed the surgery in detail and she understands it is considered permanent, however there is a failure rate of approximately 5 or less per thousand procedures done. She understands if she does become she is a 50% chance of a tubal or an ectopic . Patient also understands that laparoscopic surgery and apparently has risks including risks of infection, bleeding, possible injury to bowel, bladder, vessels, and/or other organs. She also understands her alternatives to the surgery and it is considered elective. All the patient's questions are answered and a written consent is obtained. (1) Family planning Status: Acute Code(s): Z30.09 - ENCOUNTER FOR OTH GENERAL CNSL AND ADVICE ON CONTRACEPTION SNOMED Code(s): 635396118
[~2019-09-07] MED LIST: BUPIVACAINE (PF) 0.5% 30 ML VIAL SQ ONE; DEXAMETHASONE SOD PHOSPHATE 10 MG/ML 1 ML VIAL IV ONE; GLYCOPYRROLATE 0.2 MG/ML 2 ML VIAL ONE; HYDROmorphone 0.5 MG/0.5 ML SYRINGE IVP PRN; HYDROmorphone 1 MG/ML 1 ML SYRINGE IVP ONE; KETOROLAC 30 MG/ML 1 ML VIAL ONE; LACTATED RINGERS 1,000 ML IV ONE; LACTATED RINGERS 1,000 ML IV SCH; LIDOCAINE 1% 20 ML VIAL (10MG/ML) FOR IV START INTRADERMA PRN; LIDOCAINE 1% INJ 10MG/ML (20 ML MDV) ONE; MIDAZOLAM 2 MG/2 ML VIAL ONE; NEOSTIGMINE 1 MG/ML 10 ML VIAL ONE; ONDANSETRON 4 MG/2 ML VIAL IVP ONE; PROPOFOL 10 MG/ML 20 ML VIAL IV ONE; Pre Op ABX Message 1 EACH MISC MISCELLANE ONE; ROCURONIUM BROMIDE 10 MG/ML 5 ML VIAL IV ONE; SCOPOLAMINE 1.5MG/72HR PATCH TRANSDERM ONE; SUCCINYLCHOLINE CHLORIDE 100 MG/5 ML SYR IV ONE; fentaNYL (PF) 50 MCG/ML 2 ML AMP ONE
--- NOTE | 2019-09-07 07:52 | P.OP ---
Date of Procedure: 09/07/19 Preoperative Diagnosis: Multi parity desires permanent sterilization Postoperative Diagnosis: Same Procedure(s) Performed: Laparoscopic bilateral fallopian tubal cauterization Anesthesia: NESTORA Surgeon: Beny Ybarra Estimated Blood Loss (ml): 10 Pathology: none sent Condition: stable Disposition: PACU Indications for Procedure: Please see dictated H&P for intimate details of this patient's admission. Brief summary this is a pleasant 28-year-old 2 para 2 female who is requesting permanent sterilization for control. Patient I discussed the surgery in detail the fact that it is considered permanent. However there is a failure rate of approximately 5 per thousand procedures done. She understands if she does become she is a 50% chance of a tubal or ectopic . We also discussed the inherent risks of laparoscopy including risks of infection, bleeding, possible injury to bowel, bladder, vessels, and/or other organs. All the patient's questions are answered and a written consent is obtained. Operative Findings: This patient had a normal-appearing pelvis. The left ovary had a functional cyst. Description of Procedure: This patient is taken to the operating room where she is laid in the supine position. She subsequent undergoes general endotracheal anesthesia without incident. With an adequate level of anesthesia she's placed in dorsal lithotomy position. She has abdominal vaginal perineal prep and drape. First good on below placed a speculum in the vagina and grabbed the anterior lip of the cervix with an Allis clamp. A small acorn cannula is then attached then to the Allis clamp and placed in the endocervix. At this time the speculum was removed and a red Chopra is placed in the bladder is completely drained for 25 mL of clear urine. This is left in place. Then changed gloves go up above. Make a 10 mm infraumbilical incision. Through this a 10 mm bladed lists optical trochars placed and this is done with the optical trocar. With peritoneal placement c onfirmed pneumoperitoneum was then created to 12 mm of carbon dioxide gas. Patient is placed in slight Trendelenburg position. Proximally 2 finger breaths above the symphysis pubis through the old scar make a 5 mm incision. Through this a 5 mm trochars placed under direct visualization. Blunt probe was then used to visualize uterus tubes and ovaries. All appears normal there is a small functional cyst the left ovary. Using bipolar cautery then grasped the left fallopian tube approximately 5 cm from the cornual insertion. A 2-3 cm segment of the tube was completely cauterized and a 30 W setting with bipolar cautery. Complete cauterization is noted with the volt meter. Then turned my attention of the right fallopian tube and using a similar technique the right fallopian tube was cauterized. With this completed the blunt probe was placed again I visualized the upper abdomen and pelvis all appears normal. The appendix is visualized and appears normal. The lower trochars then removed good hemostasis is noted. The camera was removed and pneumoperitoneum is reduced. Both incisions are then closed using 4-0 Vicryl on a noncutting needle. Steri- Strips are applied. Infiltrate both incisions with half percent Marcaine for postoperative pain control. No dressing applied. Then changed gloves good on below remove the Allis clamp and acorn cannula. All counts are correct 3. Patient is awakened from anesthesia and taken recovery room in satisfactory condition. There is no complications.
[2019-09-07 08:03] VITALS: TEMP 97.9
[2019-09-07 08:59] VITALS: BP 130/75; PULSE 78; RESP 18
== END | disposition home or self-care (01) ==
LOC: OR 05:50
PROVIDERS: ATTEND Obstetrics & Gynecology
DX: Z30.2 Encounter for sterilization (principal); K21.9 Gastro-esophageal reflux disease without esophagitis; K44.9 Diaphragmatic hernia without obstruction or gangrene; Z79.3 Long term (current) use of hormonal contraceptives; Z98.890 Other specified postprocedural states
CPT/HCPCS: 81025; 58670; J2250; J1100; J2710; J2405; J2001; J3010; J1885; J1170; J0330; J2704

== ENCOUNTER 2021-07-19 09:45 | Emergency (ER) | payer BC ==
[2021-07-19 10:03] VITALS: TEMP 97.8
[2021-07-19] MEDS ORDERED: ONDANSETRON 4 MG/2 ML VIAL IVP STA (10:25)
[2021-07-19] MEDS ORDERED: MORPHINE SULFATE 4 MG/ML SYRINGE IV STA (10:25)
--- NOTE | 2021-07-19 10:26 | ED ---
General Adult HPI - General Chief complaint: Abdominal Pain Stated complaint: Heartburn/Vomiting/Side Pain Time Seen by Provider: 07/19/21 09:58 Source: patient Mode of arrival: ambulatory Limitations: no limitations - History of Present Illness Initial comments: Dictation was produced using [employer] dictation software. please excuse any grammatical, word or spelling errors. Chief Complaint: 30-year-old female presents emergency department for abdominal pain History of Present Illness: 30-year-old female presents emergency department for abdominal pain. Patient's history of hiatal hernia. She states that her symptoms feel nothing like her vital hernia. She states that a right upper quadrant. The pain started at 2 AM this morning and woke her up from sleep. Patient complains of constitutional symptoms. She feels nauseated. Patient has a history of . She still has her gallbladder. The ROS documented in this emergency department record has been reviewed and confirmed by me. Those systems with pertinent positive or negative responses have been documented in the HPI. All other systems are other negative and/or noncontributory. PHYSICAL EXAM: General Impression: Alert and oriented x3, acute distress secondary to pain and nausea HEENT: Normocephalic atraumatic, extra-ocular movements intact, pupils equal and reactive to light bilaterally, mucous membranes moist. Cardiovascular: Heart regular rate and rhythm Chest: Able to complete full sentences, no retractions, no tachypnea Abdomen: abdomen soft, positive Spear sign, non-distended, no organomegaly Musculoskeletal: Pulses present and equal in all extremities, no peripheral edema Motor: no focal deficits noted Neurological: CN II-XII grossly intact, no focal motor or sensory deficits noted Skin: Intact with no visualized rashes Psych: Normal affect and mood ED course:-year-old female presents to the emergency department for abdominal pa in nausea constitutional symptoms. All signs upon arrival are within acceptable limits. Laboratory evaluation obtained. CBC, metabolic panel is unremarkable. Abdominal labs negative. Liver enzymes normal. Urinalysis negative. Patient is not . Abdominal ultrasound shows cholelithiasis without signs of infection. Gallbladder shows stone in the neck of the gallbladder. Patient reevaluated bedside findings stable medical condition. Clinical presentation consistent with symptomatic cholelithiasis. That diet to follow up with general surgeon. Return parameters were discussed. Patient will be discharged. EKG interpretation: Ventricular rate 50, sinus bradycardia, WI interval 164, QRS 92, QTc 431. No WI prolongation, no QTC prolongation, no ST or T-wave changes noted. Overall, this EKG is unremarkable - Related Data Home Medications Medication Instructions Recorded Confirmed Norgestimate-Ethinyl Estradiol 1 tab PO DAILY 09/05/19 07/19/21 [Sprintec 28 Day Tablet] Previous Rx's Medication Instructions Recorded oxyCODONE-APAP 10-325MG [Percocet 1 tab PO Q4HR PRN 3 Days #18 tab 07/19/21 10-325 mg] Allergies Allergy/AdvReac Type Severity Reaction Status Date / Time No Known Allergies Allergy Verified 07/19/21 10:41 Review of Systems ROS Statement: Those systems with pertinent positive or pertinent negative responses have been documented in the HPI. ROS Other: All systems not noted in ROS Statement are negative. Past Medical History Past Medical History: GERD/Reflux Additional Past Medical History / Comment(s): Patient has a history of GERD and hiatal hernia. History of Any Multi-Drug Resistant Organisms: None Reported Past Surgical History: Section, Hernia Repair, Tubal Ligation Additional Past Surgical History / Comment(s): Patient's had an upper endoscopy. X2. Past Anesthesia/Blood Transfusion Reactions: No Reported Reaction Past Psychological History: No Psychological Hx Reported Smoking Status: Never smoker Past Alcohol Use History: None Reported Past Drug Use History: None Reported - Past Family History Father Family Medical History: No Reported History General Exam Limitations: no limitations Course Vital Signs 07/19/21 07/19/21 10:02 11:36 Temperature 97.8 F Pulse Rate 73 60 Respiratory 18 20 Rate Blood Pressure 113/45 123/81 O2 Sat by Pulse 98 100 Oximetry Medical Decision Making - Lab Data Result diagrams: 07/19/21 10:32 07/19/21 10:32 Lab Results 07/19/21 07/19/21 07/19/21 Range/Units 10:32 10:32 10:32 WBC 11.4 H (3.8-10.6) k/uL RBC 4.64 (3.80-5.40) m/uL Hgb 14.2 (11.4-16.0) gm/dL Hct 42.8 (34.0-46.0) % MCV 92.3 (80.0-100.0) fL MCH 30.6 (25.0-35.0) pg MCHC 33.2 (31.0-37.0) g/dL RDW 11.9 (11.5-15.5) % Plt Count 308 (150-450) k/uL MPV 7.6 Neutrophils % 83 % Lymphocytes % 13 % Monocytes % 2 % Eosinophils % 1 % Basophils % 0 % Neutrophils # 9.5 H (1.3-7.7) k/uL Lymphocytes # 1.4 (1.0-4.8) k/uL Monocytes # 0.3 (0-1.0) k/uL Eosinophils # 0.1 (0-0.7) k/uL Basophils # 0.0 (0-0.2) k/uL Sodium (137-145) mmol/L Potassium (3.5-5.1) mmol/L Chloride (98-107) mmol/L Carbon Dioxide (22-30) mmol/L Anion Gap mmol/L BUN (7-17) mg/dL Creatinine (0.52-1.04) mg/dL Est GFR (CKD-EPI)AfAm (>60 ml/min/1.73 sqM) Est GFR (CKD-EPI)NonAf (>60 ml/min/1.73 sqM) Glucose (74-99) mg/dL Calcium (8.4-10.2) mg/dL Total Bilirubin (0.2-1.3) mg/dL AST (14-36) U/L ALT (4-34) U/L Alkaline Phosphatase (38-126) U/L Total Protein (6.3-8.2) g/dL Albumin (3.5-5.0) g/dL Lipase (23-300) U/L Urine Color Yellow Urine Appearance Clear (Clear) Urine pH 6.5 (5.0-8.0) Ur Specific [place] 1.031 (1.001-1.035) Urine Protein Trace H (Negative) Urine Glucose (UA) Negative (Negative) Urine Ketones 1+ H (Negative) Urine Blood Negative (Negative) Urine Nitrite Negative (Negative) Urine Bilirubin Negative (Negative) Urine Urobilinogen <2.0 (<2.0) mg/dL Ur Leukocyte Esterase Negative (Negative) Urine HCG, Qual Not Detected (Not Detectd) 07/19/21 Range/Units 10:32 WBC (3.8-10.6) k/uL RBC (3.80-5.40) m/uL Hgb (11.4-16.0) gm/dL Hct (34.0-46.0) % MCV (80.0-100.0) fL MCH (25.0-35.0) pg MCHC (31.0-37.0) g/dL RDW (11.5-15.5) % Plt Count (150-450) k/uL MPV Neutrophils % % Lymphocytes % % Monocytes % % Eosinophils % % Basophils % % Neutrophils # (1.3-7.7) k/uL Lymphocytes # (1.0-4.8) k/uL Monocytes # (0-1.0) k/uL Eosinophils # (0-0.7) k/uL Basophils # (0-0.2) k/uL Sodium 139 (137-145) mmol/L Potassium 3.6 (3.5-5.1) mmol/L Chloride 105 (98-107) mmol/L Carbon Dioxide 20 L (22-30) mmol/L Anion Gap 14 mmol/L BUN 15 (7-17) mg/dL Creatinine 0.68 (0.52-1.04) mg/dL Est GFR (CKD-EPI)AfAm >90 (>60 ml/min/1.73 sqM) Est GFR (CKD-EPI)NonAf >90 (>60 ml/min/1.73 sqM) Glucose 133 H (74-99) mg/dL Calcium 10.0 (8.4-10.2) mg/dL Total Bilirubin 0.4 (0.2-1.3) mg/dL AST 22 (14-36) U/L ALT 23 (4-34) U/L Alkaline Phosphatase 65 (38-126) U/L Total Protein 8.0 (6.3-8.2) g/dL Albumin 4.9 (3.5-5.0) g/dL Lipase 83 (23-300) U/L Urine Color Urine Appearance (Clear) Urine pH (5.0-8.0) Ur Specific [place] (1.001-1.035) Urine Protein (Negative) Urine Glucose (UA) (Negative) Urine Ketones (Negative) Urine Blood (Negative) Urine Nitrite (Negative) Urine Bilirubin (Negative) Urine Urobilinogen (<2.0) mg/dL Ur Leukocyte Esterase (Negative) Urine HCG, Qual (Not Detectd) Disposition Clinical Impression: Symptomatic cholelithiasis Disposition: HOME SELF-CARE Condition: Fair Instructions (If sedation given, give patient instructions): Gallstones (ED), Biliary Colic (ED) Prescriptions: oxyCODONE-APAP 10-325MG [Percocet 10-325 mg] 1 tab PO Q4HR PRN 3 Days #18 tab PRN Reason: Pain Is patient prescribed a controlled substance at d/c from ED?: Yes If prescribed controlled substance>3 days was MAPS reviewed?: Prescribed <3 Days Referrals: Kirk Paul DO [Doctor of Osteopathic Medicine] - 1-2 days Jack Robins MD [STAFF PHYSICIAN] - 1-2 days Marcelino Campos MD [Medical Doctor] - 1-2 days Dylan Patterson DO [Doctor of Osteopathic Medicine] - 1-2 days Bisi Saez MD [STAFF PHYSICIAN] - 1-2 days
[2021-07-19 10:37] LABS: Basophils % (A) 0 %; Eosinophils # (A) 0.1 k/uL (0-0.7); Eosinophils % (A) 1 %; HCT 42.8 % (34.0-46.0); HGB 14.2 gm/dL (11.4-16.0); Lymphocytes # (A) 1.4 k/uL (1.0-4.8); Lymphocytes % (A) 13 %; MCH 30.6 pg (25.0-35.0); MCHC 33.2 g/dL (31.0-37.0); MCV 92.3 fL (80.0-100.0); Mean Platelet Volume 7.6; Monocytes # (A) 0.3 k/uL (0-1.0); Monocytes % (A) 2 %; Neutrophils # (A) 9.5 k/uL (1.3-7.7); Neutrophils % (A) 83 %; Platelet Count 308 k/uL (150-450); RBC 4.64 m/uL (3.80-5.40); RDW 11.9 % (11.5-15.5); WBC 11.4 k/uL (3.8-10.6)
[2021-07-19 10:42] LABS: Appearance,Urine Clear (Clear); Bilirubin,Urine Negative (Negative); Blood,Urine Negative (Negative); Color,Urine Yellow; Glucose,Urine (UA) Negative (Negative); Ketones,Urine 1+ (Negative); Leukocyte Esterase,Urine Negative (Negative); Nitrite,Urine Negative (Negative); PH, Urine 6.5 (5.0-8.0); Protein,Urine Trace (Negative); Specific Gravity,Urine 1.031 (1.001-1.035); Urobilinogen,Urine <2.0 mg/dL (<2.0)
[2021-07-19 10:49] LABS: ALT 23 U/L (4-34); AST 22 U/L (14-36); African American GFR (CKD) >90 (>60 ml/min/1.73 sqM); Albumin 4.9 g/dL (3.5-5.0); Alkaline Phosphatase 65 U/L (38-126); Anion Gap 14 mmol/L; Blood Urea Nitrogen 15 mg/dL (7-17); Carbon Dioxide 20 mmol/L (22-30); Chloride 105 mmol/L (98-107); Glucose 133 mg/dL (74-99); Lipase 83 U/L (23-300); Non-African American GFR(CKD) >90 (>60 ml/min/1.73 sqM); Potassium 3.6 mmol/L (3.5-5.1); Sodium 139 mmol/L (137-145); Total Bilirubin 0.4 mg/dL (0.2-1.3)
[2021-07-19] MEDS ORDERED: SODIUM CHLORIDE 0.9% 1,000 ML IV STA (10:52)
--- NOTE | 2021-07-19 11:15 | US ---
EXAMINATION TYPE: US abdomen limited DATE OF EXAM: 07/19/2021 COMPARISON: NONE CLINICAL HISTORY: RUQ pain. EC patient with severe epigastric and RUQ pain x 2 days, N&V; hiatal janki ia EXAM MEASUREMENTS: Liver Length: 12.8 cm Gallbladder Wall: 0.2 cm CBD: 0.7 cm Right Kidney: 10.3 x 5.8 x 4.2 cm Pancreas: hyperechoic Liver: no masses seen Gallbladder: multiple, posterior hyperechoic shadowing stones seen within gallbladder; hyperechoic, shadowing focus also imaged in neck of gallbladder and is non mobile in semi upright or LLD position. Evidence for sonographic Spear's sign: yes CBD: enlarged as greater than 0.6cm for 3rd decade of patient Right Kidney: No hydronephrosis or masses seen IMPRESSION: cholelithiasis
[2021-07-19] MEDS ORDERED: HYDROmorphone 0.5 MG/0.5 ML SYRINGE IVP STA (11:28)
[2021-07-19 11:37] VITALS: BP 123/81; PULSE 60; RESP 20
== END 2021-07-19 12:11 | disposition home or self-care (01) ==
LOC: EC 09:45
DX: K80.20 Calculus of gallbladder without cholecystitis without obstruction (principal)
CPT/HCPCS: 36415; 93005; 80053; 83690; 85025; 81003; 81025; 76705; 99284; 96374; 96375; J2270; J2405; J1170

== ENCOUNTER 2021-07-21 15:40 | Observation (INO) | payer BC ==
[2021-07-21] MEDS ORDERED: SODIUM CHLORIDE 0.9% 1,000 ML IV STA (17:52)
[2021-07-21] MEDS ORDERED: PIPERACILLIN-TAZOBACTAM 3.375 GM in SODIUM CHLORIDE 0.9% 100 ML IVPB STA (17:52)
--- NOTE | 2021-07-21 17:52 | ED ---
General Adult HPI - General Stated complaint: Gallstones Time Seen by Provider: 07/21/21 17:45 - History of Present Illness Initial comments: 30 year-old female patient presents for evaluation of abdominal pain. States she was seen on Tuesday, diagnosed with gallstones, did follow up with Dr. Saez. Dr. Saez sent her here for admission to have a cholecystectomy tomorrow. Patient has been sick since 07/14/21. Denies history of abdominal surgery. Denies any fevers or chills. Does report nausea. Able to tolerate small amounts of food and fluid. - Related Data Home Medications Medication Instructions Recorded Confirmed Norgestimate-Ethinyl Estradiol 1 tab PO DAILY 09/05/19 07/21/21 [Sprintec 28 Day Tablet] Previous Rx's Medication Instructions Recorded oxyCODONE-APAP 10-325MG [Percocet 1 tab PO Q4HR PRN 3 Days #18 tab 07/19/21 10-325 mg] Allergies Allergy/AdvReac Type Severity Reaction Status Date / Time No Known Allergies Allergy Verified 07/21/21 20:01 Review of Systems ROS Statement: Those systems with pertinent positive or pertinent negative responses have been documented in the HPI. ROS Other: All systems not noted in ROS Statement are negative. Past Medical History Past Medical History: GERD/Reflux Additional Past Medical History / Comment(s): Patient has a history of GERD and hiatal hernia. History of Any Multi-Drug Resistant Organisms: None Reported Past Surgical History: Section, Hernia Repair, Tubal Ligation Additional Past Surgical History / Comment(s): Patient's had an upper endoscopy. X2. Past Anesthesia/Blood Transfusion Reactions: No Reported Reaction Past Psychological History: No Psychological Hx Reported Smoking Status: Never smoker Past Alcohol Use History: None Reported Past Drug Use History: None Reported - Past Family History Father Family Medical History: No Reported History General Exam General appearance: alert, in no apparent distress Eye exam: Present: normal appearance, PERRL, EOMI. Absent: scleral icterus, conjunctival injection, periorbital swelling ENT exam: Present: normal exam, normal oropharynx, mucous membranes moist Respiratory exam: Present: normal lung sounds bilaterally. Absent: respiratory distress, wheezes, rales, rhonchi, stridor Cardiovascular Exam: Present: regular rate, normal rhythm, normal heart sounds. Absent: systolic murmur, diastolic murmur, rubs, gallop, clicks GI/Abdominal exam: Present: soft, tenderness (midepigastric tenderness, right upper quadrant.), normal bowel sounds. Absent: distended, guarding, rebound, rigid Neurological exam: Present: alert, oriented X3, CN II-XII intact Psychiatric exam: Present: normal affect, normal mood Skin exam: Present: warm, dry, intact, normal color. Absent: rash Course Vital Signs 07/21/21 17:46 Temperature 98.3 F Pulse Rate 97 Respiratory 19 Rate Blood Pressure 142/85 O2 Sat by Pulse 100 Oximetry Medical Decision Making - Medical Decision Making 30-year-old female patient presents to the emergency department today at the request of her surgeon for admission to have gallbladder removal tomorrow. Physical examination did reveal midepigastric right upper quadrant tenderness. Labs reviewed and did reveal elevated liver enzymes. She is afebrile normal vital signs. She'll be admitted and clear liquid diet until midnight when she will be nothing by mouth. Patient is agreeable with this plan. We did start antibiotics. Case is discussed with my attending Dr. Wooten. - Lab Data Result diagrams: 07/21/21 19:45 07/21/21 19:45 Lab Results 07/21/21 07/21/21 07/21/21 Range/Units 19:45 19:45 19:45 WBC 7.7 (3.8-10.6) k/uL RBC 4.55 (3.80-5.40) m/uL Hgb 14.1 (11.4-16.0) gm/dL Hct 44.1 (34.0-46.0) % MCV 96.8 (80.0-100.0) fL MCH 31.1 (25.0-35.0) pg MCHC 32.1 (31.0-37.0) g/dL RDW 12.5 (11.5-15.5) % Plt Count 277 (150-450) k/uL MPV 7.3 Neutrophils % 57 % Lymphocytes % 33 % Monocytes % 5 % Eosinophils % 3 % Basophils % 1 % Neutrophils # 4.4 (1.3-7.7) k/uL Lymphocytes # 2.5 (1.0-4.8) k/uL Monocytes # 0.4 (0-1.0) k/uL Eosinophils # 0.2 (0-0.7) k/uL Basophils # 0.1 (0-0.2) k/uL Sodium 138 (137-145) mmol/L Potassium 3.5 (3.5-5.1) mmol/L Chloride 99 (98-107) mmol/L Carbon Dioxide 27 (22-30) mmol/L Anion Gap 12 mmol/L BUN 6 L (7-17) mg/dL Creatinine 0.62 (0.52-1.04) mg/dL Est GFR (CKD-EPI)AfAm >90 (>60 ml/min/1.73 sqM) Est GFR (CKD-EPI)NonAf >90 (>60 ml/min/1.73 sqM) Glucose 95 (74-99) mg/dL Plasma Lactic Acid Jorge L 1.5 (0.7-2.0) mmol/L Calcium 9.2 (8.4-10.2) mg/dL Total Bilirubin 1.0 (0.2-1.3) mg/dL AST 178 H (14-36) U/L ALT 142 H (4-34) U/L Alkaline Phosphatase 111 (38-126) U/L Total Protein 7.5 (6.3-8.2) g/dL Albumin 4.5 (3.5-5.0) g/dL Lipase 96 (23-300) U/L Urine Color Urine Appearance (Clear) Urine pH (5.0-8.0) Ur Specific [place] (1.001-1.035) Urine Protein (Negative) Urine Glucose (UA) (Negative) Urine Ketones (Negative) Urine Blood (Negative) Urine Nitrite (Negative) Urine Bilirubin (Negative) Urine Urobilinogen (<2.0) mg/dL Ur Leukocyte Esterase (Negative) Urine RBC (0-5) /hpf Urine WBC (0-5) /hpf Ur Squamous Epith Cells (0-4) /hpf Urine Bacteria (None) /hpf Coronavirus (PCR) (Not Detectd) 07/21/21 07/21/21 Range/Units 19:45 19:54 WBC (3.8-10.6) k/uL RBC (3.80-5.40) m/uL Hgb (11.4-16.0) gm/dL Hct (34.0-46.0) % MCV (80.0-100.0) fL MCH (25.0-35.0) pg MCHC (31.0-37.0) g/dL RDW (11.5-15.5) % Plt Count (150-450) k/uL MPV Neutrophils % % Lymphocytes % % Monocytes % % Eosinophils % % Basophils % % Neutrophils # (1.3-7.7) k/uL Lymphocytes # (1.0-4.8) k/uL Monocytes # (0-1.0) k/uL Eosinophils # (0-0.7) k/uL Basophils # (0-0.2) k/uL Sodium (137-145) mmol/L Potassium (3.5-5.1) mmol/L Chloride (98-107) mmol/L Carbon Dioxide (22-30) mmol/L Anion Gap mmol/L BUN (7-17) mg/dL Creatinine (0.52-1.04) mg/dL Est GFR (CKD-EPI)AfAm (>60 ml/min/1.73 sqM) Est GFR (CKD-EPI)NonAf (>60 ml/min/1.73 sqM) Glucose (74-99) mg/dL Plasma Lactic Acid Jorge L (0.7-2.0) mmol/L Calcium (8.4-10.2) mg/dL Total Bilirubin (0.2-1.3) mg/dL AST (14-36) U/L ALT (4-34) U/L Alkaline Phosphatase (38-126) U/L Total Protein (6.3-8.2) g/dL Albumin (3.5-5.0) g/dL Lipase (23-300) U/L Urine Color Light Yellow Urine Appearance Cloudy H (Clear) Urine pH 6.5 (5.0-8.0) Ur Specific [place] 1.004 (1.001-1.035) Urine Protein Negative (Negative) Urine Glucose (UA) Negative (Negative) Urine Ketones 1+ H (Negative) Urine Blood Negative (Negative) Urine Nitrite Negative (Negative) Urine Bilirubin Negative (Negative) Urine Urobilinogen <2.0 (<2.0) mg/dL Ur Leukocyte Esterase Small H (Negative) Urine RBC 2 (0-5) /hpf Urine WBC 10 H (0-5) /hpf Ur Squamous Epith Cells 3 (0-4) /hpf Urine Bacteria Many H (None) /hpf Coronavirus (PCR) Not Detected (Not Detectd) Disposition Clinical Impression: Symptomatic cholelithiasis Disposition: ADMITTED IP TO THIS [facility] Condition: Serious Decision to Admit Reason: Admit from EC Decision Date: 07/21/21 Decision Time: 20:32
[2021-07-21] MEDS ORDERED: MORPHINE SULFATE 4 MG/ML SYRINGE IVP STA (19:11)
[2021-07-21] MEDS ORDERED: SODIUM CHLORIDE 0.9% 1,000 ML IV ONE (19:11)
[2021-07-21] MEDS ORDERED: ONDANSETRON 4 MG/2 ML VIAL IVP STA (19:11)
[2021-07-21 20:07] LABS: ALT 142 U/L (4-34); AST 178 U/L (14-36); African American GFR (CKD) >90 (>60 ml/min/1.73 sqM); Albumin 4.5 g/dL (3.5-5.0); Alkaline Phosphatase 111 U/L (38-126); Anion Gap 12 mmol/L; Blood Urea Nitrogen 6 mg/dL (7-17); Calcium 9.2 mg/dL (8.4-10.2); Carbon Dioxide 27 mmol/L (22-30); Chloride 99 mmol/L (98-107); Glucose 95 mg/dL (74-99); Lipase 96 U/L (23-300); Non-African American GFR(CKD) >90 (>60 ml/min/1.73 sqM); Potassium 3.5 mmol/L (3.5-5.1); Sodium 138 mmol/L (137-145); Total Protein 7.5 g/dL (6.3-8.2)
[2021-07-21 20:21] LABS: Appearance,Urine Cloudy (Clear); Bacteria,Urine Many /hpf; Bilirubin,Urine Negative (Negative); Blood,Urine Negative (Negative); Color,Urine Light Yellow; Glucose,Urine (UA) Negative (Negative); Ketones,Urine 1+ (Negative); Leukocyte Esterase,Urine Small (Negative); Nitrite,Urine Negative (Negative); PH, Urine 6.5 (5.0-8.0); Protein,Urine Negative (Negative); RBC,Urine 2 /hpf (0-5); Specific Gravity,Urine 1.004 (1.001-1.035); Squamous Epithelial Cell,Urine 3 /hpf (0-4); Urobilinogen,Urine <2.0 mg/dL (<2.0); WBC,Urine 10 /hpf (0-5)
[2021-07-21 20:25] LABS: Basophils # (A) 0.1 k/uL (0-0.2); Basophils % (A) 1 %; Eosinophils # (A) 0.2 k/uL (0-0.7); Eosinophils % (A) 3 %; HCT 44.1 % (34.0-46.0); HGB 14.1 gm/dL (11.4-16.0); Lymphocytes # (A) 2.5 k/uL (1.0-4.8); Lymphocytes % (A) 33 %; MCH 31.1 pg (25.0-35.0); MCHC 32.1 g/dL (31.0-37.0); MCV 96.8 fL (80.0-100.0); Mean Platelet Volume 7.3; Monocytes # (A) 0.4 k/uL (0-1.0); Monocytes % (A) 5 %; Neutrophils # (A) 4.4 k/uL (1.3-7.7); Neutrophils % (A) 57 %; Platelet Count 277 k/uL (150-450); RBC 4.55 m/uL (3.80-5.40); RDW 12.5 % (11.5-15.5); WBC 7.7 k/uL (3.8-10.6)
[2021-07-21] MEDS ORDERED: ONDANSETRON 4 MG/2 ML VIAL IVP PRN (20:32)
[2021-07-21] MEDS ORDERED: NALOXONE 0.4 MG/ML 1 ML VIAL IV PRN (20:32)
[2021-07-21] MEDS ORDERED: MORPHINE SULFATE 4 MG/ML SYRINGE IV PRN (20:32)
[2021-07-21] MEDS ORDERED: SCOPOLAMINE 1.5MG/72HR PATCH TRANSDERM ONE (21:30)
[2021-07-21] MEDS: SIMETHICONE 80 MG CHEWABLE PO SCH (22:38)
[2021-07-21] MEDS: ACETAMINOPHEN TAB 500 MG TAB PO SCH (23:36)
[2021-07-21] MEDS: KETOROLAC 30 MG/ML 1 ML VIAL IVP SCH (23:37)
[2021-07-21] MEDS: PIPERACILLIN-TAZOBACTAM 3.375 GM in SODIUM CHLORIDE 0.9% 100 ML IVPB SCH (23:41)
[2021-07-22] MEDS: KETOROLAC 30 MG/ML 1 ML VIAL IVP SCH ×4 (05:26→23:59)
[2021-07-22] MEDS: ACETAMINOPHEN TAB 500 MG TAB PO SCH ×4 (05:26→23:58)
[2021-07-22] MEDS ORDERED: INDOCYANINE GREEN 25 MG VIAL IV PRN (07:34)
--- NOTE | 2021-07-22 07:34 | P.GSHP ---
History of Present Illness H&P Date: 07/21/21 CHIEF COMPLAINT: Cholecystitis HISTORY OF PRESENT ILLNESS: The patient is a 30-year-old female who presented to the office with severe right upper quadrant abdominal pain for the past 3 days. She reports eating chicken nuggets that triggered her event. She presented to the emergency room 3 days ago and at that time found to have gallstones. Despite going home, her pain continued to be persistent. She was seen in the office and sent immediately to the emergency room for acute cholecystitis. PAST MEDICAL HISTORY: Please see list PAST SURGICAL HISTORY: Please see list MEDICATIONS: Please see list ALLERGIES: Please see list SOCIAL HISTORY: Please see list FAMILY HISTORY: Please see list REVIEW OF ORGAN SYSTEMS: CONSTITUTIONAL: No reports of fevers or chills. HEENT: Denies any troubles with the vision or hearing. ENDOCRINE: No reports of hypothyroidism. No diabetes. RESPIRATORY: No recent pneumonias. CARDIOVASCULAR: Denies chest pain or palpitations GI: No blood in stools or constipation. Has gastroesophageal reflux disease. Has hiatal hernia. MUSCULOSKELETAL: Has occasional joint pain including back pain. NEURO: No seizure disorders or headaches. No recent stroke. PSYCH: No depression or suicidal ideation. GENITOURINARY: No active blood in urine. No urinary hesitancy. HEMATOLOGIC: No personal or family history of DVTs or pulmonary emboli. SKIN: No skin cancer. PHYSICAL EXAM: VITAL SIGNS: Afebrile vital signs stable GENERAL: Well-developed pleasant in no acute distress. HEENT: No scleral icterus. Extraocular movements grossly intact. Moist buccal mucosa. NECK: Supple without lymphadenopathy. CHEST: Unlabored respirations. Equal bilateral excursions. CARDIOVASCULAR: Regular rate regular rhythm rhythm. Distal 2+ pulses. ABDOMEN: Soft, nondistended. Tender along the epigastrium and right upper quadrant. MUSCULOSKELETAL: No clubbing, cyanosis, or edema. NEURO: Cranial nerves II to XII within normal limits. No focal or lateralizing signs. PSYCH: Alert and oriented to person, place and time. SKIN: Well-perfused good skin turgor. LABS: WBC on the last presentation to emergency room elevated over 11,000. STUDIES: Ultrasound of the gallbladder reviewed from prior ER visit with multiple gallstones identified distended gallbladder. This is my independent interpretation. EKG: Sinus tachycardia from prior ER visit ASSESSMENT: 1. Acute cholecystitis with right upper quadrant abdominal pain PLAN: 1. Will need a robotic cholecystectomy possible open. Benefits and risks were described. 2. Heparin for DVT prophylaxis 5000 units. 3. Antibiotic prophylaxis. Past Medical History Past Medical History: GERD/Reflux Additional Past Medical History / Comment(s): Patient has a history of GERD and hiatal hernia. History of Any Multi-Drug Resistant Organisms: None Reported Past Surgical History: Section, Hernia Repair, Tubal Ligation Additional Past Surgical History / Comment(s): Patient's had an upper endoscopy. X2. Past Anesthesia/Blood Transfusion Reactions: No Reported Reaction Past Psychological History: No Psychological Hx Reported Smoking Status: Never smoker Past Alcohol Use History: None Reported Past Drug Use History: None Reported - Past Family History Father Family Medical History: No Reported History Medications and Allergies Home Medications Medication Instructions Recorded Confirmed Type Norgestimate-Ethinyl Estradiol 1 tab PO DAILY 09/05/19 07/21/21 History [Sprintec 28 Day Tablet] Acetaminophen Tab [Tylenol Tab] 1,000 mg PO Q6HR PRN #30 tablet 07/23/21 Rx Ibuprofen [Motrin] 600 mg PO Q8HR PRN #30 tab 07/23/21 Rx Simethicone [Gas-X] 125 mg PO AC-TID PRN #20 capsule 07/23/21 Rx Allergies Allergy/AdvReac Type Severity Reaction Status Date / Time No Known Allergies Allergy Verified 07/22/21 16:25 Surgical - Exam Vital Signs Temp Pulse Resp BP Pulse Ox 98.3 F 97 19 142/85 100 07/21/21 17:46 07/21/21 17:46 07/21/21 17:46 07/21/21 17:46 07/21/21 17:46 Results - Labs 07/21/21 19:45 07/21/21 19:45 Abnormal Lab Results - Last 24 Hours (Table) 07/21/21 07/21/21 Range/Units 19:45 19:54 BUN 6 L (7-17) mg/dL AST 178 H (14-36) U/L ALT 142 H (4-34) U/L Urine Appearance Cloudy H (Clear) Urine Ketones 1+ H (Negative) Ur Leukocyte Esterase Small H (Negative) Urine WBC 10 H (0-5) /hpf Urine Bacteria Many H (None) /hpf Diabetes panel 07/21/21 Range/Units 19:45 Sodium 138 (137-145) mmol/L Potassium 3.5 (3.5-5.1) mmol/L Chloride 99 (98-107) mmol/L Carbon Dioxide 27 (22-30) mmol/L BUN 6 L (7-17) mg/dL Creatinine 0.62 (0.52-1.04) mg/dL Glucose 95 (74-99) mg/dL Calcium 9.2 (8.4-10.2) mg/dL AST 178 H (14-36) U/L ALT 142 H (4-34) U/L Alkaline Phosphatase 111 (38-126) U/L Total Protein 7.5 (6.3-8.2) g/dL Albumin 4.5 (3.5-5.0) g/dL Calcium panel 07/21/21 Range/Units 19:45 Calcium 9.2 (8.4-10.2) mg/dL Albumin 4.5 (3.5-5.0) g/dL Pituitary panel 07/21/21 Range/Units 19:45 Sodium 138 (137-145) mmol/L Potassium 3.5 (3.5-5.1) mmol/L Chloride 99 (98-107) mmol/L Carbon Dioxide 27 (22-30) mmol/L BUN 6 L (7-17) mg/dL Creatinine 0.62 (0.52-1.04) mg/dL Glucose 95 (74-99) mg/dL Calcium 9.2 (8.4-10.2) mg/dL Adrenal panel 07/21/21 Range/Units 19:45 Sodium 138 (137-145) mmol/L Potassium 3.5 (3.5-5.1) mmol/L Chloride 99 (98-107) mmol/L Carbon Dioxide 27 (22-30) mmol/L BUN 6 L (7-17) mg/dL Creatinine 0.62 (0.52-1.04) mg/dL Glucose 95 (74-99) mg/dL Calcium 9.2 (8.4-10.2) mg/dL Total Bilirubin 1.0 (0.2-1.3) mg/dL AST 178 H (14-36) U/L ALT 142 H (4-34) U/L Alkaline Phosphatase 111 (38-126) U/L Total Protein 7.5 (6.3-8.2) g/dL Albumin 4.5 (3.5-5.0) g/dL Assessment and Plan (1) Acute cholecystitis due to biliary calculus Current Visit: Yes Status: Acute Code(s): K80.00 - CALCULUS OF GALLBLADDER W ACUTE CHOLECYST W/O OBSTRUCTION SNOMED Code(s): 27345604457424 (2) Gastroesophageal reflux disease Current Visit: Yes Status: Acute Code(s): K21.9 - GASTRO-ESOPHAGEAL REFLUX DISEASE WITHOUT ESOPHAGITIS SNOMED Code(s): 221195503 (3) Obesity Current Visit: Yes Status: Acute Code(s): E66.9 - OBESITY, UNSPECIFIED SNOMED Code(s): 346100727 (4) BMI 33.0-33.9,adult Current Visit: Yes Status: Acute Code(s): Z68.33 - BODY MASS INDEX [BMI] 33.0-33.9, ADULT SNOMED Code(s): 921726044
[2021-07-22] MEDS: PIPERACILLIN-TAZOBACTAM 3.375 GM in SODIUM CHLORIDE 0.9% 100 ML IVPB SCH ×3 (08:41→23:02)
[2021-07-22] MEDS: SIMETHICONE 80 MG CHEWABLE PO SCH ×4 (08:58→22:53)
--- NOTE | 2021-07-22 12:41 | P.PN ---
<Sarah Lee - Last Filed: 07/22/21 12:36> Subjective Progress Note Date: 07/22/21 CHIEF COMPLAINT: Abdominal pain, cholecystitis HISTORY OF PRESENT ILLNESS: This is a 30-year-old female who was seen in the office by Dr. Saze yesterday. She underwent diagnostic studies for her gallbladder and with a separate clinical picture was consistent with cholecystitis. She was told to come to the hospital for admission and surgical intervention. Plans are for cholecystectomy today. Patient states she is not having any nausea or vomiting. She is having epigastric and right upper quadrant pain which is improved with she does not move. She is currently on IV Zosyn. She has been afebrile. PHYSICAL EXAM: VITAL SIGNS: Reviewed GENERAL: Well-developed in no acute distress. HEENT: No sclera icterus. Extraocular movements grossly intact. Moist buccal mucosa. Head is atraumatic, normocephalic. Hears conversational speech. No nasal drainage. NECK: Supple without lymphadenopathy. CHEST: Non-labored respirations and equal bilateral excursions. CARDIOVASCULAR: Palpable 2+ radial pulses. ABDOMEN: Soft. Nondistended. Epigastric and right upper quadrant tenderness MUSCULOSKELETAL: No clubbing or cyanosis. NEUROLOGIC: No focal or lateralizing signs. Cranial nerves II through XII grossly intact. PSYCH: Appropriate affect. Alert and oriented to person, place and time. SKIN: Well perfused. Good skin turgor. ASSESSMENT: 1. Epigastric and right upper quadrant abdominal pain 2. Chronic cholecystitis 3. Symptomatic gallstones. PLAN: 1. She is scheduled for a robotic cholecystectomy, possible open today. Benefits and risks were described. 2. Heparin for DVT prophylaxis 5000 units. 3. Antibiotic prophylaxis 4. Nothing by mouth The impression and plan of care has been dictated as directed. Dr. Saez I performed a history and examination of this patient, discussed the same with the dictator. I agree with the dictator's note ,documented as a scribe. Any additional findings or plans will be noted. Objective - Vital Signs Vital signs: Vital Signs Temp 98.2 F 07/22/21 07:00 Pulse 75 07/22/21 07:00 Resp 16 07/22/21 08:00 BP 113/69 07/22/21 07:00 Pulse Ox 98 07/22/21 07:00 Intake & Output 07/21/21 07/22/21 07/22/21 18:59 06:59 18:59 Intake Total 500 Balance 500 Weight 92.986 kg 92.986 kg Intake: Oral 500 Other: # Voids 1 - Labs CBC & Chem 7: 07/21/21 19:45 07/21/21 19:45 Labs: Abnormal Lab Results - Last 24 Hours (Table) 07/21/21 07/21/21 Range/Units 19:45 19:54 BUN 6 L (7-17) mg/dL AST 178 H (14-36) U/L ALT 142 H (4-34) U/L Urine Appearance Cloudy H (Clear) Urine Ketones 1+ H (Negative) Ur Leukocyte Esterase Small H (Negative) Urine WBC 10 H (0-5) /hpf Urine Bacteria Many H (None) /hpf <Bisi Saez - Last Filed: 07/23/21 08:38> Subjective Patient seen and evaluated. Robotic cholecystectomy described. Postoperative pain management reviewed. Postoperative discharge instructions reviewed. Objective - Vital Signs Vital signs: Vital Signs Temp 98.3 F 07/23/21 02:00 Pulse 92 07/23/21 03:00 Resp 16 07/23/21 02:00 BP 117/73 07/23/21 03:00 Pulse Ox 96 07/23/21 03:00 Intake & Output 07/22/21 07/23/21 07/23/21 18:59 06:59 18:59 Intake Total 1150 100 Output Total 10 Balance 1140 100 Intake: IV 1150 100 Output: Estimated Blood Loss 10 Other: # Voids 1 1 1 - Labs CBC & Chem 7: 07/21/21 19:45 07/21/21 19:45 Labs: Microbiology - Last 24 Hours (Table) 07/21/21 19:40 Blood Culture - Preliminary Blood No Growth after 24 hours 07/21/21 19:25 Blood Culture - Preliminary Blood No Growth after 24 hours Assessment and Plan (1) Acute cholecystitis due to biliary calculus Current Visit: Yes Status: Acute Code(s): K80.00 - CALCULUS OF GALLBLADDER W ACUTE CHOLECYST W/O OBSTRUCTION SNOMED Code(s): 60232809364946 (2) Gastroesophageal reflux disease Current Visit: Yes Status: Acute Code(s): K21.9 - GASTRO-ESOPHAGEAL REFLUX DISEASE WITHOUT ESOPHAGITIS SNOMED Code(s): 813756068 (3) Obesity Current Visit: Yes Status: Acute Code(s): E66.9 - OBESITY, UNSPECIFIED SNOMED Code(s): 177303330 (4) BMI 33.0-33.9,adult Current Visit: Yes Status: Acute Code(s): Z68.33 - BODY MASS INDEX [BMI] 33.0-33.9, ADULT SNOMED Code(s): 813774569
[2021-07-22] MEDS ORDERED: IV FLUID CONTINUATION 300 ML IV ONE (16:33)
[2021-07-22] MEDS ORDERED: HEPARIN SODIUM,PORCINE/PF 5,000 UNIT/0.5 ML SYRINGE SQ ONE (16:48)
[2021-07-22] MEDS ORDERED: ONDANSETRON 4 MG/2 ML VIAL ONE (16:48)
[2021-07-22] MEDS ORDERED: ONDANSETRON 4 MG/2 ML VIAL IVP ONE (16:55)
[2021-07-22] MEDS ORDERED: DEXAMETHASONE SOD PHOSPHATE 4 MG/ML 1 ML VIAL IVP ONE (16:55)
[2021-07-22] MEDS ORDERED: PROPOFOL 10 MG/ML 20 ML VIAL IV ONE (17:22)
[2021-07-22] MEDS ORDERED: SUCCINYLCHOLINE CHLORIDE 100 MG/5 ML SYR IV ONE (17:22)
[2021-07-22] MEDS ORDERED: LIDOCAINE 1% INJ 10MG/ML (20 ML MDV) ONE (17:22)
[2021-07-22] MEDS ORDERED: MIDAZOLAM 2 MG/2 ML VIAL ONE (17:22)
[2021-07-22] MEDS ORDERED: NEOSTIGMINE 1 MG/ML 10 ML VIAL ONE (17:22)
[2021-07-22] MEDS ORDERED: HYDROmorphone (PF) 1 MG/ML ONE (17:22)
[2021-07-22] MEDS ORDERED: ROCURONIUM 10 MG/ML (5 ML VIAL) IV ONE (17:22)
[2021-07-22] MEDS ORDERED: fentaNYL (PF) 50 MCG/ML 2 ML AMP ONE (17:22)
[2021-07-22] MEDS ORDERED: GLYCOPYRROLATE 0.2 MG/ML 2 ML VIAL ONE (17:22)
[2021-07-22] MEDS ORDERED: LACTATED RINGERS 1,000 ML IV ONE (17:40)
[2021-07-22] MEDS ORDERED: SODIUM CHLORIDE 0.9% 50 ML with ceFAZolin 2,000 MG IV ONE ×2 (17:40)
[2021-07-22] MEDS ORDERED: BUPIVACAIN-EPI 0.25%-1:200,000 30 ML VIAL SQ ONE (17:43)
[2021-07-22] MEDS: HYDROmorphone 0.5 MG/0.5 ML SYRINGE IVP ONE ×2 (19:21→19:26)
[2021-07-22] MEDS ORDERED: KETOROLAC 15 MG/ML 1 ML VIAL IVP ONE (19:31)
[2021-07-22] MEDS: KETOROLAC 15 MG/ML 1 ML VIAL IVP SCH (23:59)
[2021-07-23] MEDS: KETOROLAC 15 MG/ML 1 ML VIAL IVP SCH (03:38)
[2021-07-23] MEDS: ACETAMINOPHEN TAB 500 MG TAB PO SCH ×2 (05:33→12:42)
[2021-07-23] MEDS: KETOROLAC 30 MG/ML 1 ML VIAL IVP SCH ×2 (05:34→12:39)
[2021-07-23] MEDS ORDERED: HYDROmorphone 1 MG/ML 1 ML SYRINGE IVP PRN (08:04)
[2021-07-23] MEDS ORDERED: SCOPOLAMINE 1.5MG/72HR PATCH TRANSDERM STA (08:05)
[2021-07-23] MEDS: PIPERACILLIN-TAZOBACTAM 3.375 GM in SODIUM CHLORIDE 0.9% 100 ML IVPB SCH (08:16)
[2021-07-23] MEDS: SIMETHICONE 80 MG CHEWABLE PO SCH ×2 (08:16→12:48)
--- NOTE | 2021-07-23 08:27 | P.OP ---
Date of Procedure: 07/22/21 Description of Procedure: SURGEON: SUSAN PADILLA MD PREOPERATIVE DIAGNOSES: 1. Acute cholecystitis 2. Symptomatic gallstones 3. Gastroesophageal reflux disease 4. Hiatal hernia POSTOPERATIVE DIAGNOSES: 1. Acute gangrenous hydrops cholecystitis with cystic duct obstruction due to gallstones 2. Symptomatic gallstones 3. Hydrops cholecystitis 4. Gastroesophageal reflux disease 5. Hiatal hernia OPERATION: 1. Robotic-assisted da Danny Xi laparoscopic cholecystectomy, multiport with FIREFLY ESTIMATED BLOOD LOSS: 10 mL. SPECIMENS REMOVED: Gallbladder. COMPLICATIONS: None. OPERATIVE FINDINGS: 1. Acute gangrenous cholecystitis with hydrops and distended gallbladder 2. Indocyanine green drain confirms acute cholecystitis with lack of contrast in gallbladder 3. Common bile duct within normal limits, without dilation 4. No bile from clips INDICATIONS: The patient is a 30 year-old female who presents with epigastric right upper quadrant pain and acute cholecystitis over 3 days. Urgent surgical intervention with cholecystectomy was described. Robotic assisted laparoscopic approach was described. Benefits and risks of the procedure including but not limited to bleeding, infection, injury to the biliary tree was reviewed. Informed consent was obtained. DESCRIPTION OF PROCEDURE: Patient was brought to the operating room, placed in supine position. After general induction, the abdomen had been prepped and draped in standard sterile fashion. The robotic da Danny XI system was primed. After a timeout protocol was performed, the patient had been prepped and draped in standard sterile fashion. The patient was injected with indocyanine green. A 5 mm 0 degrees laparoscopic trocar entry was performed along the left upper quadrant. The abdomen insufflated to 15 mmHg pressure which was tolerated well. Diagnostic laparoscopy demonstrated no injury to bowel viscera or mesentery. The liver surface was unremarkable. A moderately distended gallbladder was identified adding complexity to the case. Next, two 8 mm robotic ports were placed along the right upper abdomen. The camera 8-mm port was maintained along the epigastrium. Another 8 mm port was placed along the left upper abdominal wall after exchanging the 5 mm port. Please note that the ports were placed at least 10 to 15 cm away from the target anatomy of the gallbladder. The robot was docked along the left lateral abdomen. The patient was repositioned in reverse Trendelenburg position with the right side up. Using a grasper for arm 3, a grasper for arm 4, including hook cautery for arm 1, the robotic system was docked and primed as described. Instruments were interchanged by the assistant field hockey coach including hook cautery, Bovie cautery and clip appliers. I had sat at the console. The gallbladder was reflected towards the dome of the liver. The gallbladder was moderately distended adding complexity to the case. Moderate edema was found along the cystic triangle including infundibulum. Initial dissection was performed on the gallbladder infundibulum using indocyanine green to illuminate the cystic duct and common bile duct. Due to moderate distention of the infundibulum, dome down technique was performed removing the gallbladder from the hepatic fossa starting from the fundus towards the infundibulum. Using a sponge, the liver was reflected towards the diaphragm and starting at the gallbladder fundus, hook cautery was used to find the avascular plane between the liver and the gallbladder. As the gallbladder was dissected from the hepatic fossa, hemostasis was checked using vessel sealer along the posterior gallbladder. Next, indocyanine green was used to confirm the common bile duct as well as cystic duct. The cystic duct was short and dissection was performed at the junction of the cystic duct and infundibulum. The entire gallbladder was without contrast consistent with acute cholecystitis. The infundibulum was retracted laterally to expose the cystic duct away from the common bile duct. The cystic duct was dissected free from its surrounding tissue. FIREFLY was used to identify the cystic structures. A critical view of safety was obtained. Large PLASTIC clips were used throughout the entire case. Using a clip audit spec, a clip was placed at the junction of the infundibulum and cystic duct. The cystic duct was divided using vessel sealer. Next, the cystic artery was divided using vessel sealer. Electro-Bovie cautery and vessel sealer was used to remove the gallbladder without decompression. Hemostasis was checked and found to be adequate. The robot was undocked. I re-scrubbed into the case. A 10 mm Endo Catch bag was used to remove the gallbladder in total via the left upper quadrant incision after widening the incision. The specimen was removed from the abdominal cavity. Hany Haynes and 0 Vicryl was used to close the fascial defect of the left upper quadrant. All pneumoperitoneum instruments were evacuated from the abdominal cavity. The incisions were cleansed using dilute hydrogen peroxide. The incisions were reapproximated using 4-0 Monocryl in an interrupted subcuticular fashion. Please note along the trocar sites, local anesthetic was placed as a field block prior to insertion of all instruments. Liquid glue was applied to the skin. At the end of the procedure needle, sponge, and instrument count had been verified correct by the surgical rn. The patient was transferred to postanesthesia care unit in stable condition. Intraoperative films were shared with the patient's family who were pleased with the level of care.
[2021-07-23] MEDS ORDERED: ENOXAPARIN 30 MG/0.3 ML SYRINGE SQ SCH (09:00)
[2021-07-23 09:07] VITALS: BP 128/77; PULSE 75; RESP 18; TEMP 98
--- NOTE | 2021-07-23 09:54 | P.DS ---
Providers Date of admission: 07/21/21 20:33 Expected date of discharge: 07/23/21 Attending physician: Bisi Saez Primary care physician: Stated None Hospital Course: Discharge Diagnoses: 1. Acute gangrenous cholecystitis with hydrops and distended gallbladder status post robotic-assisted da Danny Xi laparoscopic cholecystectomy 2. Symptomatic gallstones 3. Gastroesophageal reflux disease 4. Hiatal hernia A 30-year-old female who had presented to Dr. Saez's office two days ago with severe right upper quadrant abdominal pain for the last 3-4 days duration. She initially presented to the emergency room 4 days ago at that time was found to have gallstones. She was discharged home and to follow-up with general surgery. After being seen in the office she was sent over to be admitted for pain management and acute cholecystitis. She is status post robotic-assisted da Danny X I laparoscopic cholecystectomy with findings of acute gangrenous hydrops cholecystitis with cystic duct obstruction due to gallstones. Today she seen and evaluated she's up and ambulating, states she passed gas 1. She is eating a low-fat diet without any problems. She is denying any nausea or vomiting. She is afebrile. Discuss continuing use of incentive spirometer and abdominal binder at home. The impression and plan of care has been dictated as directed. Dr. Campos I performed a history and examination of this patient, discussed the same with the dictator. I agree with the dictator's note ,documented as a scribe. Any additional findings or plans will be noted. Procedures: Robotic-assisted da Danny Xi laparoscopic cholecystectomy, multiport with FIREFLY Patient Condition at Discharge: Stable Plan - Discharge Summary Discharge Rx Participant: Yes New Discharge Prescriptions: New Ibuprofen [Motrin] 600 mg PO Q8HR PRN #30 tab PRN Reason: Pain Acetaminophen Tab [Tylenol Tab] 1,000 mg PO Q6HR PRN #30 tablet PRN Reason: Pain Simethicone [Gas-X] 125 mg PO AC-TID PRN #20 capsule PRN Reason: Pain Continue Norgestimate-Ethinyl Estradiol [Sprintec 28 Day Tablet] 1 tab PO DAILY Discontinued oxyCODONE-APAP 10-325MG [Percocet 10-325 mg] 1 tab PO Q4HR PRN 3 Days #18 tab PRN Reason: Pain Discharge Medication List Norgestimate-Ethinyl Estradiol [Sprintec 28 Day Tablet] 1 tab PO DAILY 09/05/19 [History] Acetaminophen Tab [Tylenol Tab] 1,000 mg PO Q6HR PRN #30 tablet 07/23/21 [Rx] Ibuprofen [Motrin] 600 mg PO Q8HR PRN #30 tab 07/23/21 [Rx] Simethicone [Gas-X] 125 mg PO AC-TID PRN #20 capsule 07/23/21 [Rx] Follow up Appointment(s)/Referral(s): Bisi Saez MD [STAFF PHYSICIAN] - 07/28/21 (Telehealth available) None,Stated [Primary Care Provider] - 1-2 days Patient Instructions/Handouts: *Surgery [facility] - Managing Your Pain After Surgery Without Opioids, Low Fat Diet (ED), Laparoscopic Cholecystectomy (DC) Activity/Diet/Wound Care/Special Instructions: Recommend low-fat diet for the next 2 days. No lifting over 10 pounds in 2 weeks until Aug 05, 2021. May shower. No bath tub soaks for two weeks until Aug 05, 2021. Diet as tolerated. Use Tylenol, simethicone and ibuprofen or Aleve scheduled for the next 24-48 hours for best pain relief. Use ice along incisions for today to prevent swelling. Discharge Disposition: HOME SELF-CARE
[2021-07-23 10:22] LABS: Basophils # (A) 0.01 X 10*3/uL (0.00-0.10); Basophils % (A) 0.1 %; Eosinophils # (A) 0.01 X 10*3/uL (0.04-0.35); Eosinophils % (A) 0.1 %; HCT 35.5 % (37.2-46.3); HGB 11.5 g/dL (12.0-15.0); Immature Grans, Automated 0.4 %; Lymphocytes # (A) 1.23 X 10*3/uL (0.90-5.00); Lymphocytes % (A) 12.3 %; MCH 30.4 pg (27.0-32.0); MCHC 32.4 g/dL (32.0-37.0); MCV 93.9 fL (80.0-97.0); Mean Platelet Volume 10.5 fL (9.5-12.2); Monocytes # (A) 0.36 X 10*3/uL (0.20-1.00); Monocytes % (A) 3.6 %; NRBC Per 100 WBC 0 /100 WBCS (0.0-0.0); Neutrophils # (A) 8.37 X 10*3/uL (1.80-7.70); Neutrophils % (A) 83.5 %; Platelet Count 287 X 10*3/uL (140-440); RBC 3.78 X 10*6/uL (4.10-5.20); RDW 12.1 % (11.5-14.5); WBC 10.02 X 10*3/uL (4.50-10.00)
[2021-07-23 10:59] LABS: African American GFR (CKD) 132.9 (60.0-200.0); Albumin 3.9 g/dL (3.8-4.9); Albumin/Globulin Ratio 1.77 (1.60-3.17); Anion Gap 15.1 mmol/L (10.00-18.00); BUN/Creat Ratio 13.14 Ratio (12.00-20.00); Blood Urea Nitrogen 9.2 mg/dL (9.0-27.0); Calcium 8.7 mg/dL (8.7-10.3); Carbon Dioxide 17.9 mmol/L (20.0-27.5); Globulin 2.2 g/dL (1.6-3.3); Non-African American GFR(CKD) 114.6 (60.0-200.0); Total Bilirubin 0.4 mg/dL (0.30-1.20); Total Protein 6.1 g/dL (6.2-8.2)
== END 2021-07-23 13:33 | disposition home or self-care (01) ==
LOC: EC 15:40 → 6NMEDSUR 20:33 → OBSVTOIN 07-22 19:10 → INTOOBSV 07-22 19:10 → UNDODISIN 07-23 13:33
PROVIDERS: ADMIT Surgery Plastic and Reconstructive Surgery; ATTEND Surgery Plastic and Reconstructive Surgery
DX: K80.13 Calculus of gallbladder with acute and chronic cholecystitis with obstruction (principal); K82.1 Hydrops of gallbladder; K82.A1 Gangrene of gallbladder in cholecystitis; Z20.822 Contact with and (suspected) exposure to COVID-19; K44.9 Diaphragmatic hernia without obstruction or gangrene; K21.00 Gastro-esophageal reflux disease with esophagitis, without bleeding; E66.9 Obesity, unspecified; Z79.899 Other long term (current) drug therapy; Z68.33 Body mass index [BMI] 33.0-33.9, adult; Z98.51 Tubal ligation status; Z87.19 Personal history of other diseases of the digestive system; Z98.890 Other specified postprocedural states; Z98.891 History of uterine scar from previous surgery
CPT/HCPCS: 47562; S2900; 36415; 80053; 81001; 81025; 83605; 83690; 85025; 87040; 87635; 88304; 96365; 96366; 96374; 96375; 96376; 99285